=== PATIENT | female | born 1965 | race Caucasian/White ===

== ENCOUNTER → 2016-11-10 | Outpatient (CLI) | payer OTHER ==
[2016-11-10 09:57] LABS: Basophils % (A) 0 %; CH 26.4; CHCM 30.4; Eosinophils # (A) 0.2 k/uL (0-0.7); Eosinophils % (A) 2 %; HGB 13.7 gm/dL (11.4-16.0); Hypochromasia Moderate; Luc # (Auto) 0.18; Luc % (Auto) 3; Lymphocytes # (A) 1.6 k/uL (1.0-4.8); Lymphocytes % (A) 25 %; MCH 26.7 pg (25.0-35.0); MCHC 30.5 g/dL (31.0-37.0); MCV 87.4 fL (80.0-100.0); Mean Platelet Volume 8.9; Monocytes # (A) 0.3 k/uL (0-1.0); Monocytes % (A) 5 %; Neutrophils # (A) 4.2 k/uL (1.3-7.7); Neutrophils % (A) 65 %; RBC 5.15 m/uL (3.80-5.40); RDW 13.9 % (11.5-15.5); WBC 6.5 k/uL (3.8-10.6); WBC (Perox) 6.57
== END | disposition home or self-care (01) ==
LOC: LABPAT 09:05
PROVIDERS: ATTEND Obstetrics & Gynecology
DX: N95.0 Postmenopausal bleeding (principal)
CPT/HCPCS: 85025

== ENCOUNTER 2016-11-11 08:29 | Day surgery (SDC) | payer OTHER ==
[2016-11-07 15:23] VITALS: BMI 60.3
[~2016-11-11 08:29] MED LIST: DEXAMETHASONE SOD PHOSPHATE 10 MG/ML 1 ML VIAL IV ONE; HYDROmorphone 1 MG/ML 1 ML SYRINGE IVP PRN; LACTATED RINGERS 1,000 ML IV SCH; LIDOCAINE 1% 20 ML VIAL (10MG/ML) FOR IV START INTRADERMA PRN; MIDAZOLAM 2 MG/2 ML VIAL IV PRN; ONDANSETRON 4 MG/2 ML VIAL IVP ONE; Pre Op ABX Message 1 EACH MISC MISCELLANE ONE; SCOPOLAMINE 1.5MG/72HR PATCH TRANSDERM ONE
[2016-11-11 09:26] VITALS: RESP 18
[2016-11-11] MEDS ORDERED: fentaNYL (PF) 50 MCG/ML 2 ML AMP ONE (10:15)
[2016-11-11] MEDS ORDERED: SUCCINYLCHOLINE CHLORIDE 100 MG/5 ML SYR IV ONE (10:15)
[2016-11-11] MEDS ORDERED: MIDAZOLAM 2 MG/2 ML VIAL ONE (10:15)
[2016-11-11] MEDS ORDERED: PROPOFOL 10 MG/ML 20 ML VIAL IV ONE (10:15)
[2016-11-11] MEDS ORDERED: Acetaminophen-Codeine 300-30mg TAB PO PRN ×2 (10:23)
[2016-11-11] MEDS ORDERED: KETOROLAC 30 MG/ML 1 ML VIAL IVP PRN (10:23)
[2016-11-11] MEDS ORDERED: SIMETHICONE 80 MG CHEWABLE PO PRN (10:23)
[2016-11-11] MEDS ORDERED: diphenhydrAMINE 50 MG/ML 1 ML VIAL IVP PRN (10:23)
[2016-11-11] MEDS ORDERED: ONDANSETRON 4 MG/2 ML VIAL IVP PRN (10:23)
[2016-11-11] MEDS ORDERED: METOCLOPRAMIDE 5 MG/ML 2 ML VIAL IVP PRN (10:23)
[2016-11-11] MEDS ORDERED: LACTATED RINGERS 1,000 ML IV SCH (10:30)
--- NOTE | 2016-11-11 10:50 | P.OP ---
Date of Procedure: 11/11/16 Preoperative Diagnosis: #1. Postmenopausal bleeding #2. Morbid obesity Postoperative Diagnosis: Same Procedure(s) Performed: #1. Diagnostic hysteroscopy 2. Dilation and curettage Anesthesia: MAUREEN Surgeon: Naresh Valentino Estimated Blood Loss (ml): 5 IV fluids (ml): 600 Urine output (ml): 40 Pathology: other (Endometrial curettings) Condition: stable Disposition: PACU Operative Findings: Preoperative pelvic examination demonstrated a roughly 4-5 week midplane mobile nontender normal uterus though the exam is significantly limited secondary to patient's habitus. Intraoperatively, the uterus sounded to 8 cm. Hysteroscopic Josh there was some shaggy endometrium in the fundal region. The bilateral tubal ostia were seen. Minimal tissue was returned on curettage and nothing was found with the polyp forceps. Description of Procedure: The patient was prepped and draped in usual fashion after general endotracheal anesthesia was administered by the anesthesiologist. A weighted speculum was placed and the bladder drained of approximately 40 mL of clear katie urine. The anterior lip cervix was grasped with a single-tooth tenaculum and the uterus sounded to 8 cm. Serial dilation was carried out to admit the diagnostic hysteroscope with the findings as noted above., Once adequate hysteroscopy had been carried out, the scope was set aside and the cervix further dilated to admit a small sharp curette. Thorough circumferential curettage was carried out onto a Telfa placed in the vagina. Minimal tissue was returned. A polyp forceps was then introduced and no further tissue or polypoid fragments noted. The instrumentation was removed. There was some bleeding at one of the sites of the tenaculum which was made hemostatic with pressure. Estimated blood loss for the entire case was 5 mL or less. There were no complications. All sponge, instrument, and needle counts were correct. The patient tolerated the procedure well and proceeded to the recovery room in stable condition.
[2016-11-11 11:00] VITALS: TEMP 98.2
[2016-11-11 12:06] VITALS: BP 138/87; PULSE 87
== END 2016-11-11 12:33 | disposition home or self-care (01) ==
LOC: OR 08:29
PROVIDERS: ATTEND Obstetrics & Gynecology
DX: N84.0 Polyp of corpus uteri (principal); E66.01 Morbid (severe) obesity due to excess calories; Z68.44 Body mass index [BMI] 60.0-69.9, adult; Z80.49 Family history of malignant neoplasm of other genital organs; I10 Essential (primary) hypertension; F17.200 Nicotine dependence, unspecified, uncomplicated; Z79.82 Long term (current) use of aspirin; Z79.899 Other long term (current) drug therapy; Z88.8 Allergy status to other drugs, medicaments and biological substances
CPT/HCPCS: 58558; 88305; J2250; J1100; J2405; J3010; J0330; J2704

== ENCOUNTER → 2018-10-29 | Outpatient (CLI) | payer BC ==
--- NOTE | 2018-11-01 10:16 | MM ---
Reason for exam: additional evaluation requested from prior study. Last mammogram was performed 3 years and 10 months ago. History: Patient is postmenopausal. 2 cyst aspirations of the left breast. Excisional biopsy of the left breast. Physical Findings: Nurse did not find any significant physical abnormalities on exam. MG 3D Diag Mammo W/Cad JOSEFINA Bilateral CC and MLO view(s) were taken. Prior study comparison: December 28, 2014, right breast MG diagnostic mammo RT w CAD. June 22, 2014, bilateral MG screening mammo w CAD. The breast tissue is heterogeneously dense. This may lower the sensitivity of mammography. There is no discrete abnormality including area of concern. No significant new findings when compared with previous films. These results were verbally communicated with the patient and result sheet given to the patient on 10/29/18. ASSESSMENT: Negative, BI-RAD 1 RECOMMENDATION: Routine screening mammogram of both breasts in 1 year. Manage patient on a clinical basis.
== END | disposition home or self-care (01) ==
LOC: RADMAMWWP 14:44
PROVIDERS: ATTEND Internal Medicine
DX: R92.8 Other abnormal and inconclusive findings on diagnostic imaging of breast (principal)
CPT/HCPCS: 77062; 77066

== ENCOUNTER → 2019-02-11 | Outpatient (CLI) | payer OTHER ==
--- NOTE | 2019-02-11 14:05 | XR ---
EXAMINATION TYPE: XR knee complete LT DATE OF EXAM: 02/11/2019 CLINICAL HISTORY: pain TECHNIQUE: Three views of the left knee are obtained. COMPARISON: None. FINDINGS: There is no acute fracture/dislocation. Severe tricompartmental joint space narrowing note d. Extensive bone spur formation. [id number] joint effusion. The overlying soft tissue appears unremarkable. IMPRESSION: There is no acute fracture or dislocation. Advanced changes of osteoarthritis. ICD 10 NO FRACTURE, INITIAL EVALUATION
--- NOTE | 2019-02-11 14:09 | XR ---
Left leg HISTORY: Leg pain 2 views of the left leg Correlation to left knee same date There is soft tissue swelling present. Bone mineralization is reduced. Arthropathy noted at the left ankle. Bone mineralization, alignment are maintained. IMPRESSION: Osteoarthritis, correlate for cellulitis, edema.
== END | disposition home or self-care (01) ==
LOC: RADXRMAIN 13:32
PROVIDERS: ATTEND Emergency Medicine
DX: M17.12 Unilateral primary osteoarthritis, left knee (principal); S80.12XA Contusion of left lower leg, initial encounter

== ENCOUNTER 2019-02-14 13:58 | Emergency (ER) | payer BC, OTHER ==
[2019-02-14 14:10] VITALS: BP 149/88; PULSE 100; RESP 18; TEMP 98.1
--- NOTE | 2019-02-14 16:01 | ED ---
General Adult HPI - General Chief complaint: Extremity Injury, Lower Stated complaint: Leg injury/pain-[facility] Time Seen by Provider: 02/14/19 14:56 Source: patient Mode of arrival: wheelchair Limitations: no limitations - History of Present Illness Initial comments: Patient is a 53-year-old female presenting to emergency Department with left leg pain. Patient fell on Thursday after she tripped and landed on her left knee. Patient reports she was sent to emergency department and a fracture and dislocation were ruled out with an x-ray. Patient reports swelling in the left knee as well as ecchymosis. Patient reports the pain has decreased and now she has developed erythema in the lower leg. Patient also reports lower leg pain. She was reexamined by [facility] and sent to the emergency department today. Patient denies chest pain, shortness of breath, fever or chills. Patient is a smoker. Patient denies shortness of breath more than usual. Patient denies exogenous estrogen use, history of DVTs, recent chemotherapy treatment or recent prolonged periods of activity. - Related Data Home Medications Medication Instructions Recorded Confirmed Cholecalciferol [Vitamin D3] 1,000 unit PO DAILY 11/07/16 11/07/16 Cider Vinegar [Apple Cider Vinegar] 300 mg PO DAILY 11/07/16 11/11/16 Docusate [Colace] 100 mg PO DAILY 11/07/16 11/11/16 Iron 18 mg PO DAILY 11/07/16 11/11/16 Multivitamin with Iron 1 each PO DAILY 11/07/16 11/07/16 [Multivitamins with Iron] Misoprostol [Cytotec] 200 mcg VAGINAL ONCE 11/11/16 11/11/16 Previous Rx's Medication Instructions Recorded Cephalexin [Keflex] 500 mg PO Q6HR #40 cap 02/14/19 Allergies Allergy/AdvReac Type Severity Reaction Status Date / Time amitriptyline [From [facility]] Allergy Itching Verified 02/14/19 14:04 ibuprofen Allergy Rash/Hives, Verified 11/07/16 15:19 itching mustard Allergy Dyspnea Verified 11/07/16 15:19 peanut Allergy Anaphylaxis Verified 11/07/16 15:19 metamucil powder Allergy Dyspnea Uncoded 11/07/16 15:19 salmon Allergy Dyspnea Uncoded 11/07/16 15:19 Review of Systems ROS Statement: Those systems with pertinent positive or pertinent negative responses have been documented in the HPI. ROS Other: All systems not noted in ROS Statement are negative. Past Medical History Past Medical History: Hypertension, Osteoarthritis (OA) Additional Past Medical History / Comment(s): not currently taking BP medication, herniated disc, sciatic problem,migraine headaches, no periods for 3 yrs. & started bleeding recently History of Any Multi-Drug Resistant Organisms: None Reported Past Surgical History: Breast Surgery, Cholecystectomy, Tubal Ligation Past Anesthesia/Blood Transfusion Reactions: No Reported Reaction Past Psychological History: No Psychological Hx Reported Smoking Status: Current every day smoker Past Alcohol Use History: None Reported Past Drug Use History: None Reported - Past Family History Mother Family Medical History: Cancer General Exam Limitations: no limitations General appearance: alert, in no apparent distress, obese Head exam: Present: atraumatic, normocephalic, normal inspection Eye exam: Present: normal appearance, PERRL, EOMI Pupils: Present: normal accommodation ENT exam: Present: normal exam, mucous membranes moist, normal external ear exam Neck exam: Present: normal inspection, full ROM Respiratory exam: Present: normal lung sounds bilaterally Cardiovascular Exam: Present: regular rate, normal rhythm, normal heart sounds Extremities exam: Present: tenderness (Left knee tenderness of palpation, left lower leg pain with palpation.), other (+2 dorsalis pedis and posterior tibialis bilaterally). Absent: normal inspection (Left knee ecchymosis, mild erythema in the left lower leg, left lower leg pain), full ROM (Limited range of motion due to pain.) Back exam: Present: normal inspection, full ROM Neurological exam: Present: alert, oriented X3 Psychiatric exam: Present: normal affect, normal mood Skin exam: Present: warm, intact, normal color Course Vital Signs 02/14/19 14:04 Temperature 98.1 F Pulse Rate 100 Respiratory 18 Rate Blood Pressure 149/88 O2 Sat by Pulse 99 Oximetry Medical Decision Making - Medical Decision Making Patient is a 53-year-old female presents emergency Department with left knee pain. X-ray of the left knee is unremarkable. Thorough physical examination of the leg appears slightly difficult due to large body habitus. Ultrasound of the left leg is unremarkable for DVT. The ecchymosis of the left knee is due to the healing process considering the incident occurred 3 days ago. Patient advised to follow-up with orthopedics if symptoms not improved. Patient advised to alternate between Tylenol and ibuprofen for pain control. Strict return parameters were thoroughly discussed the patient was understanding and a greeable. Case discussed with physician. i counseled the patient for smoking cessation for greater than 3 minutes - Lab Data Lab Results 02/14/19 Range/Units 15:45 Urine Color Light Yellow Urine Appearance Clear (Clear) Urine pH 6.5 (5.0-8.0) Ur Specific [place] 1.009 (1.001-1.035) Urine Protein Negative (Negative) Urine Glucose (UA) Negative (Negative) Urine Ketones Negative (Negative) Urine Blood Negative (Negative) Urine Nitrite Negative (Negative) Urine Bilirubin Negative (Negative) Urine Urobilinogen <2.0 (<2.0) mg/dL Ur Leukocyte Esterase Negative (Negative) Disposition Clinical Impression: Cellulitis, leg Disposition: HOME SELF-CARE Condition: Stable Instructions (If sedation given, give patient instructions): Knee Sprain (ED) Additional Instructions: Please apply cold compresses on the left knee to minimize swelling. Please see prescribe medication as directed. Please follow up with primary care. Please return to emergency department if symptoms worsen. Prescriptions: Cephalexin [Keflex] 500 mg PO Q6HR #40 cap Is patient prescribed a controlled substance at d/c from ED?: No Referrals: Jose J Peace MD [Primary Care Provider] - 1-2 days Robel Bella DO [Doctor of Osteopathic Medicine] - 1-2 days Time of Disposition: 16:52
[2019-02-14 16:07] LABS: Appearance,Urine Clear (Clear); Bilirubin,Urine Negative (Negative); Blood,Urine Negative (Negative); Color,Urine Light Yellow; Glucose,Urine (UA) Negative (Negative); Ketones,Urine Negative (Negative); Leukocyte Esterase,Urine Negative (Negative); Nitrite,Urine Negative (Negative); PH, Urine 6.5 (5.0-8.0); Protein,Urine Negative (Negative); Specific Gravity,Urine 1.009 (1.001-1.035); Urobilinogen,Urine <2.0 mg/dL (<2.0)
--- NOTE | 2019-02-14 16:31 | US ---
EXAMINATION TYPE: US venous doppler duplex LE LT DATE OF EXAM: 02/14/2019 4:11 PM COMPARISON: NONE CLINICAL HISTORY: 53-year-old female Pain. Injury to left bernabe 3 days prior, no h/o DVT, bruising on bernabe, patient is 390lbs SIDE PERFORMED: left TECHNIQUE: The lower extremity deep venous system is examined utilizing real time linear array sonog lety with graded compression, doppler sonography and color-flow sonography. FINDINGS: VESSELS IMAGED: External Iliac Vein (EIV) Common Femoral Vein Deep Femoral Vein Greater Saphenous Vein * Femoral Vein Popliteal Vein Small Saphenous Vein * Proximal Calf Veins (* superficial vessels) Zone Maintenance Technician notes: Left Leg: Limited exam shows no sign of thrombus seen above the knee, good blood flow and compression seen. Due to patient's body habitus, I could only image transversally due to lar ge popiteal fold. Unable to visualize vessels in popiteal fossa. 4.7cm complex collection seen under bruising on bernabe at area of injury IMPRESSION: 1. Large patient body habitus limits assessment particularly at and below the left knee. No evidence for DVT above the knee. Unable to adequately evaluate the popliteal vein. 2. Focal elongated irregular collection measuring 4.7 x 4.4 x 0.5 cm just deep to the skin surface wi thin the subcutaneous adipose layer at the site of patient's injury. Some subcutaneous bruising is navarro spected. Consider 2-4 week follow-up soft tissue ultrasound to reassess.
== END 2019-02-14 16:58 | disposition home or self-care (01) ==
LOC: EC 13:58
DX: L03.116 Cellulitis of left lower limb (principal); F17.200 Nicotine dependence, unspecified, uncomplicated; Z79.899 Other long term (current) drug therapy; Z91.010 Allergy to peanuts; Z91.018 Allergy to other foods; Z88.6 Allergy status to analgesic agent; Z88.8 Allergy status to other drugs, medicaments and biological substances
CPT/HCPCS: 81003; 99283

== ENCOUNTER → 2019-06-24 | Outpatient (CLI) | payer BC ==
--- NOTE | 2019-06-24 18:05 | US ---
EXAMINATION TYPE: US thyroid st tissue head/neck DATE OF EXAM: 06/24/2019 COMPARISON: NONE CLINICAL HISTORY: R22.1 MASS OF NECK. palpable near left ear for 1 year, stayed the same in size, te nder when touched 0.9 x 0.9 x 0.8cm hypoechoic lesion with no internal vascularity noted within parotid gland. IMPRESSION: There is a 9 mm hypoechoic nodule corresponding to the area of palpable abnormality whic h has an overall nonspecific appearance but appears to be solid. 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 More definitive evaluation is suggested with CT scan soft tissue neck with c ontrast.
== END | disposition home or self-care (01) ==
LOC: RADUSWWP 16:31
PROVIDERS: ATTEND Internal Medicine
DX: R22.1 Localized swelling, mass and lump, neck (principal)
CPT/HCPCS: 76536

== ENCOUNTER → 2019-08-01 | Outpatient (CLI) | payer BC ==
--- NOTE | 2019-08-02 08:12 | CT ---
EXAMINATION TYPE: CT soft tissue neck w con DATE OF EXAM: 08/01/2019 COMPARISON: None HISTORY: swelling to left side of neck CT DLP: 591.2 mGycm CONTRAST: CT scan of the neck is performed with IV Contrast, patient injected with 60cc mL of Isovue 300. Contrast enhanced CT of the neck was performed from the skull base through the lung apices. AIRWAY: The supraglottic, glottic, and subglottic portions of the airway appear patent and free of mass. SALIVARY GLANDS: The submandibular and parotid glands are free of mass or inflammatory process. THYROID GLAND: Predominantly solid nodule is identified arising from the left thyroid lobe measuring 3.5 x 2.1 x 2.2 cm. Right thyroid lobe is free of nodule. LYMPH NODES: 3-5 lymph nodes are noted adjacent to the left submandibular gland and left internal jug ular chain all measuring less than 1 cm. Several subcentimeter right-sided lymph nodes also noted. No lymph nodes greater than 1 cm. LUNG APICES: No nodule or mass is seen. OTHER: Vascular structures are patent. Severe degenerative change throughout the cervical spine with multilevel central stenosis identified. No abscess seen. IMPRESSION: 1. Nonspecific left-sided thyroidal nodule as discussed above. 2. Severe degenerative change throughout the cervical spine with multilevel central stenosis.
== END | disposition home or self-care (01) ==
LOC: RADCTMAIN 16:10
PROVIDERS: ATTEND Internal Medicine
DX: R22.1 Localized swelling, mass and lump, neck (principal)
CPT/HCPCS: 70491; Q9967

== ENCOUNTER → 2020-06-07 | Outpatient (CLI) | payer BC ==
--- NOTE | 2020-06-07 16:52 | US ---
EXAMINATION TYPE: US thyroid st tissue head/neck DATE OF EXAM: 06/07/2020 COMPARISON: No prior thyroid ultrasound scans. CT 08/01/2022. CLINICAL HISTORY: E04.1 NONTOXIC SINGLE THYROID NODULE. Assess nodule GLAND SIZE: Right Lobe: 4.3 x 1.4 x 1.9 cm Overall Parenchyma: heterogenous Left Lobe: 4.2 x 2.4 x 2.4 cm Overall Parenchyma: heterogeneous Isthmus Thickness: 0.4 cm NODULES RIGHT: # of nodules measured on right: 1 1. 0.9 X 0.6 x 0.5 cm solid nodule at the mid pole with well-defined margins. This nodule is wider than tall and shows no intranodular vascularity. Prior size: No prior here LEFT: # of nodules measured on left: 1 1. 3.1 X 2.5 x 2.0 cm hypoechoic solid nodule at the mid pole with well-defined margins. This nodu le is wider than tall and shows intranodular vascularity. Prior size: No prior ultrasound here . This nodule may be larger than the CT measurements of 2.2 c m x 2.1 cm. ISTHMUS: # of nodules measured in the isthmus: 0 Bilateral neck scanned, no evidence of lymphadenopathy. IMPRESSION: Large nodule left lobe thyroid may be larger than the CT comparison
== END | disposition home or self-care (01) ==
LOC: RADUSWWP 15:43
PROVIDERS: ATTEND Internal Medicine
DX: E04.1 Nontoxic single thyroid nodule (principal)
CPT/HCPCS: 76536

== ENCOUNTER 2021-02-25 06:40 | Day surgery (SDC) | payer BC ==
[2021-02-20 16:33] VITALS: BMI 69.5
--- NOTE | 2021-02-25 02:36 | P.GSHP ---
History of Present Illness H&P Date: 02/25/21 CHIEF COMPLAINT: GERD and colon screen HISTORY OF PRESENT ILLNESS: The patient is a 55-year-old female who presents with gastroesophageal reflux disease and need for colon screen. Upper and lower endoscopy were offered for further evaluation and management. PAST MEDICAL HISTORY: Please see list. PAST SURGICAL HISTORY: Please see list. MEDICATIONS: Please see list. ALLERGIES: Please see list. SOCIAL HISTORY: No illicit drug use FAMILY HISTORY: No reports of Crohn disease or ulcerative colitis. REVIEW OF ORGAN SYSTEMS: CONSTITUTIONAL: No reports of fevers or chills. GI: Denies any blood in stools or constipation. PHYSICAL EXAM: VITAL SIGNS: Stable GENERAL: Well-developed pleasant in no acute distress. HEENT: No scleral icterus. Extraocular movements grossly intact. Moist buccal mucosa. NECK: Supple without lymphadenopathy. CHEST: Unlabored respirations. Equal bilateral excursions. CARDIOVASCULAR: Regular rate and rhythm. Distal 2+ pulses. ABDOMEN: Soft, nondistended. MUSCULOSKELETAL: No clubbing, cyanosis, or edema. ASSESSMENT: 1. Gastroesophageal reflux disease 2. Colon screen. PLAN: 1. Recommend proceeding with an upper and lower endoscopy Past Medical History Past Medical History: GERD/Reflux, Hypertension, Osteoarthritis (OA) Additional Past Medical History / Comment(s): herniated disc, migraine headaches, - mass present on thyroid, History of Any Multi-Drug Resistant Organisms: None Reported Past Surgical History: Breast Surgery, Cholecystectomy, Tubal Ligation Additional Past Surgical History / Comment(s): 01/31/2020 - mass removed by carotid on left side of neck. 2019 - US biopsy on thyroid. Past Anesthesia/Blood Transfusion Reactions: No Reported Reaction Smoking Status: Former smoker - Past Family History Mother Family Medical History: Osteoarthritis (OA) Medications and Allergies Home Medications Medication Instructions Recorded Confirmed Type Cider Vinegar [Apple Cider Vinegar] 600 mg PO DAILY 11/07/16 02/20/21 History Metoprolol Succinate (ER) [Toprol 50 mg PO DAILY 08/30/19 02/20/21 History Xl] Sennosides [Senokot] 8.6 mg PO DAILY 08/30/19 02/20/21 History Ascorbic Acid/Elderberry Fruit 1 each PO DAILY 01/16/21 02/20/21 History [Elderberry-Vit C 50-100 mg [facility]] Cholecalciferol [Vitamin D3 (25 50 mcg PO DAILY 01/16/21 02/20/21 History Mcg = 1000 Iu)] Cyanocobalamin (Vitamin B-12) 5,000 mcg PO DAILY 01/16/21 02/20/21 History [Vitamin B-12] Ferrous Sulfate [Iron] 325 mg PO DAILY 01/16/21 02/20/21 History Zinc 50 mg PO DAILY 01/16/21 02/20/21 History amLODIPine BESYLATE [Norvasc] 5 mg PO DAILY 01/16/21 02/20/21 History Chlorthalidone 25 mg PO DAILY 02/20/21 02/20/21 History amLODIPine [Norvasc] 2.5 mg PO HS 02/20/21 02/20/21 History Allergies Allergy/AdvReac Type Severity Reaction Status Date / Time amitriptyline [From [facility]] Allergy Itching Verified 02/20/21 16:07 gabapentin Allergy Unknown Verified 02/20/21 16:07 ibuprofen Allergy Rash/Hives, Verified 02/20/21 16:07 itching mustard Allergy Dyspnea Verified 02/20/21 16:07 peanut Allergy Anaphylaxis Verified 02/20/21 16:07 cat nip Allergy Dyspnea Uncoded 02/20/21 16:07 metamucil powder Allergy Dyspnea Uncoded 02/20/21 16:07 salmon Allergy Dyspnea Uncoded 02/20/21 16:07
[~2021-02-25 06:40] MED LIST changes: -DEXAMETHASONE SOD PHOSPHATE 10 MG/ML 1 ML VIAL IV ONE; -HYDROmorphone 1 MG/ML 1 ML SYRINGE IVP PRN; +LIDOCAINE 1% (10MG/ML) FOR IV START INTRADERMA PRN; -LIDOCAINE 1% 20 ML VIAL (10MG/ML) FOR IV START INTRADERMA PRN; -MIDAZOLAM 2 MG/2 ML VIAL IV PRN; -ONDANSETRON 4 MG/2 ML VIAL IVP ONE; -Pre Op ABX Message 1 EACH MISC MISCELLANE ONE; -SCOPOLAMINE 1.5MG/72HR PATCH TRANSDERM ONE
[2021-02-25 07:28] VITALS: TEMP 97.8
[2021-02-25] MEDS ORDERED: PROPOFOL 10 MG/ML 20 ML VIAL IV ONE (07:34)
[2021-02-25] MEDS ORDERED: LIDOCAINE 1% INJ 10MG/ML (20 ML MDV) ONE (07:34)
[2021-02-25] MEDS ORDERED: GLYCOPYRROLATE 0.2 MG/ML 2 ML VIAL ONE (07:34)
[2021-02-25] MEDS ORDERED: KETAMINE 10 MG/ML 20 ML VIAL ONE (07:34)
--- NOTE | 2021-02-25 07:50 | P.PCN ---
Date of Procedure: 02/25/21 Description of Procedure: PREOPERATIVE DIAGNOSIS: Gastroesophageal reflux disease. Morbid obesity. POSTOPERATIVE DIAGNOSIS: Morbid obesity. Gastritis. Gastroesophageal reflux disease. Diaphragmatic hiatal hernia OPERATION: Esophagogastroduodenoscopy with biopsies along antrum. SURGEON: Lashaun Cristina MD ANESTHESIA: MAC. INDICATIONS: The patient is a 55-year-old female who presents with a history of reflux disease. Benefits and risks of the procedure were described. Informed consent was obtained. DESCRIPTION: The patient was brought into the endoscopy suite and laid in the left lateral decubitus position. An Olympus gastroscope was passed along the posterior oropharynx down to the distal esophagus where the squamocolumnar junction was encountered at 40 cm from the incisors. The stomach was entered. Additional findings are listed below. Biopsies with cold forceps were obtained of the antrum. The first through third portion of the duodenum was examined and unremarkable. Retroflexion of the scope confirmed Hill grade 3 lower esophageal valve. The squamocolumnar junction demonstrated LA grade B erosive esophagitis. The stomach was desufflated. The patient tolerated the procedure well. FINDINGS: Squamocolumnar junction 40 cm from the incisors. Diaphragmatic hiatus at 41 cm. Hiatal hernia, 1 cm Hill grade 3 lower esophageal valve. LA grade B erosive esophagitis. No active duodenitis. Chronic gastritis Bile reflux RECOMMENDATIONS: Upper endoscopy as needed.
--- NOTE | 2021-02-25 08:14 | P.PCN ---
Date of Procedure: 02/25/21 Description of Procedure: PREOPERATIVE DIAGNOSIS: Colonoscopy screening. Family history colon polyps POSTOPERATIVE DIAGNOSIS: Colonoscopy screening. Family history colon polyps OPERATION: Colonoscopy to the cecum, ileocecal valve and appendiceal orifice. SURGEON: Lashaun Cristina MD. ANESTHESIA: MAC. INDICATIONS: The patient is a 55-year-old female who presents for colonoscopy screening. Benefits and risks were described and informed consent was obtained. DESCRIPTION OF PROCEDURE: The patient had undergone Sutab prep. The patient had been brought into the operating room and laid in the left lateral decubitus position. After adequate intravenous sedation, the rectum was examined with 2% lidocaine jelly. No external hemorrhoids were encountered. The rectal tone was within normal limits. No lesions were palpated in the rectal vault. An Olympus colonoscope was advanced until the cecum, ileocecal valve and appendiceal orifice were clearly viewed. The prep was good. No scattered diverticulosis was encountered. No colonic polyps were found. No evidence of focal colitis was found. Retroflexion of the scope demonstrated grade 1 internal hemorrhoids without active bleeding or inflammation. The colon was desufflated. The patient had tolerated the procedure well. Withdrawal time was over 6 minutes. FINDINGS: Aronchick preparation quality scale 2 (1-5) Internal hemorrhoids, grade 1 No external prolapsed hemorrhoids. No arteriovenous malformations. No adenomatous polyps. No focal colitis. RECOMMENDATIONS: Lower endoscopy in 5 years, 2025 Plan - Discharge Summary Discharge Rx Participant: No New Discharge Prescriptions: Continue Cider Vinegar [Apple Cider Vinegar] 600 mg PO DAILY Metoprolol Succinate (ER) [Toprol XL] 50 mg PO DAILY Sennosides [Senokot] 8.6 mg PO DAILY Zinc 50 mg PO DAILY Ascorbic Acid/Elderberry Fruit [Elderberry-Vit C 50-100 mg Chw] 1 each PO DAILY Chlorthalidone 25 mg PO DAILY Cyanocobalamin (Vitamin B-12) [Vitamin B-12] 5,000 mcg PO DAILY Cholecalciferol [Vitamin D3 (25 Mcg = 1000 Iu)] 50 mcg PO DAILY amLODIPine BESYLATE [Norvasc] 5 mg PO DAILY Ferrous Sulfate [Iron] 325 mg PO DAILY amLODIPine [Norvasc] 2.5 mg PO HS Discharge Medication List Cider Vinegar [Apple Cider Vinegar] 600 mg PO DAILY 11/07/16 [History] Metoprolol Succinate (ER) [Toprol XL] 50 mg PO DAILY 08/30/19 [History] Sennosides [Senokot] 8.6 mg PO DAILY 08/30/19 [History] Ascorbic Acid/Elderberry Fruit [Elderberry-Vit C 50-100 mg Chw] 1 each PO DAILY 01/16/21 [History] Cholecalciferol [Vitamin D3 (25 Mcg = 1000 Iu)] 50 mcg PO DAILY 01/16/21 [History] Cyanocobalamin (Vitamin B-12) [Vitamin B-12] 5,000 mcg PO DAILY 01/16/21 [History] Ferrous Sulfate [Iron] 325 mg PO DAILY 01/16/21 [History] Zinc 50 mg PO DAILY 01/16/21 [History] amLODIPine BESYLATE [Norvasc] 5 mg PO DAILY 01/16/21 [History] Chlorthalidone 25 mg PO DAILY 02/20/21 [History] amLODIPine [Norvasc] 2.5 mg PO HS 02/20/21 [History] [facility]Ref[facility] [place] [facility] [place] [facility] Patient Instructions/Handouts: *Sur[facility] - (Anesthesia) Endoscopy Discharge Instructions, Colonoscopy (DC), Upper Endoscopy (DC) Activity/Diet/Wound Care/Special Instructions: Repeat colonoscopy 5 years, 2025 Discharge Disposition: HOME SELF-CARE
[2021-02-25 08:21] VITALS: BP 120/86; PULSE 89; RESP 18
[2021-02-25 08:58] LABS: HCT 39.7 % (34.0-46.0); MCH 28.7 pg (25.0-35.0); MCHC 32.9 g/dL (31.0-37.0); MCV 87.4 fL (80.0-100.0); Mean Platelet Volume 9.3; Platelet Count 159 k/uL (150-450); RBC 4.54 m/uL (3.80-5.40); RDW 13.8 % (11.5-15.5); WBC 5.5 k/uL (3.8-10.6)
[2021-02-25 09:08] LABS: ALT 53 U/L (4-34); AST 45 U/L (14-36); African American GFR (CKD) >90 (>60 ml/min/1.73 sqM); Albumin 3.6 g/dL (3.5-5.0); Alkaline Phosphatase 62 U/L (38-126); Anion Gap 9 mmol/L; Blood Urea Nitrogen 12 mg/dL (7-17); Calcium 8.7 mg/dL (8.4-10.2); Carbon Dioxide 26 mmol/L (22-30); Chloride 103 mmol/L (98-107); Glucose 111 mg/dL (74-99); Magnesium 1.9 mg/dL (1.6-2.3); Non-African American GFR(CKD) >90 (>60 ml/min/1.73 sqM); Phosphorus 3.9 mg/dL (2.5-4.5); Potassium 3.4 mmol/L (3.5-5.1); Sodium 138 mmol/L (137-145); Total Bilirubin 0.7 mg/dL (0.2-1.3); Total Protein 6.4 g/dL (6.3-8.2)
[2021-02-25 09:19] LABS: Prothrombin Time 10.7 sec (9.0-12.0)
[2021-02-25 16:19] LABS: % Iron Saturation 20.53 (12.00-45.00); Chol/HDL Ratio 3.43; Cholesterol 127 mg/dL (0-200); Iron 62 ug/dL (50-170); LDL Cholesterol,Calculated 60.4 mg/dL (0.0-131.0); Total Iron Binding Capacity 302 ug/dL (228-460)
[2021-02-25 16:34] LABS: Ferritin 352.4 ng/mL (10.0-291.0); Folate, Serum >24.0 ng/mL
[2021-02-25 18:02] LABS: Hemoglobin A1C 5.4 % (4.0-6.0)
[2021-02-26 13:01] LABS: Zinc, Serum 67 ug/dL (60-130)
[2021-02-27 06:03] LABS: Vitamin A 33 ug/dL (38-106)
[2021-02-27 06:24] LABS: Vit B1(Thiamine) 46 ug/L (38-122)
== END 2021-02-25 08:51 | disposition home or self-care (01) ==
LOC: ORWHC2ENDO 06:40
PROVIDERS: ATTEND Surgery Plastic and Reconstructive Surgery
DX: Z12.11 Encounter for screening for malignant neoplasm of colon (principal); K29.50 Unspecified chronic gastritis without bleeding; Z83.71 Family history of colonic polyps; K44.9 Diaphragmatic hernia without obstruction or gangrene; K22.10 Ulcer of esophagus without bleeding; E66.01 Morbid (severe) obesity due to excess calories; Z68.44 Body mass index [BMI] 60.0-69.9, adult; I10 Essential (primary) hypertension; M19.90 Unspecified osteoarthritis, unspecified site; G43.909 Migraine, unspecified, not intractable, without status migrainosus; E07.9 Disorder of thyroid, unspecified; Z98.890 Other specified postprocedural states; Z90.49 Acquired absence of other specified parts of digestive tract; Z98.51 Tubal ligation status; Z87.891 Personal history of nicotine dependence; Z82.61 Family history of arthritis; Z79.899 Other long term (current) drug therapy; Z88.6 Allergy status to analgesic agent; Z91.010 Allergy to peanuts; Z88.8 Allergy status to other drugs, medicaments and biological substances; Z91.018 Allergy to other foods; G47.33 Obstructive sleep apnea (adult) (pediatric)
CPT/HCPCS: 43239; 84255; 84134; 88305; 84425; 80061; 80053; 82607; 82728; 82525; 82746; 83540; 83550; 83735; 84100; 84443; 84590; 84630; 85027; 85610; 85730; 82306; 83970; 83036; G0105; J2001; J2704; 45378

== ENCOUNTER → 2021-03-06 | Outpatient (CLI) | payer BC ==
[2021-03-06 14:35] VITALS: BP 177/102; PULSE 90; RESP 18; TEMP 98.4; BMI 70.0
--- NOTE | 2021-03-06 14:43 | P.PN ---
Subjective Progress Note Date: 03/06/21 She comes in with BMI over 70. She is an EGD follow-up. No current abdominal pain. EKG done. Food diary journal described. Needs recent EKG at facility. Cardiac clearance with Dr. Koehler. Objective - Vital Signs Vital signs: Vital Signs Temp 98.4 F 03/06/21 14:27 Pulse 90 03/06/21 14:27 Resp 18 03/06/21 14:27 BP 177/102 03/06/21 14:27 Pulse Ox Intake & Output 03/05/21 03/06/21 03/06/21 18:59 06:59 18:59 Weight 190.962 kg
== END | disposition home or self-care (01) ==
LOC: BARWHC3 13:38
PROVIDERS: ATTEND Surgery Plastic and Reconstructive Surgery
DX: E66.01 Morbid (severe) obesity due to excess calories (principal); Z68.45 Body mass index [BMI] 70 or greater, adult
CPT/HCPCS: 99211

== ENCOUNTER → 2021-05-20 | Outpatient (CLI) | payer BC ==
[2021-05-20 14:32] VITALS: BMI 66.0
== END ==
LOC: BARWHC3 08:17
PROVIDERS: ATTEND Surgery Plastic and Reconstructive Surgery
DX: E66.01 Morbid (severe) obesity due to excess calories (principal); Z68.44 Body mass index [BMI] 60.0-69.9, adult; Z71.3 Dietary counseling and surveillance
CPT/HCPCS: 97804

== ENCOUNTER → 2021-08-08 | Outpatient (CLI) | payer BC | END | disposition home or self-care (01) | LOC: LABPAT 09:14 | PROVIDERS: ATTEND Surgery Plastic and Reconstructive Surgery | DX: Z01.812 Encounter for preprocedural laboratory examination (principal); Z20.822 Contact with and (suspected) exposure to COVID-19 | CPT/HCPCS: U0003; C9803; U0005 ==

== ENCOUNTER 2021-08-12 07:30 | Inpatient (IN) | payer BC ==
[2021-08-19] MEDS ORDERED: ceFAZolin 3 GM in SODIUM CHLORIDE 0.9% 100 ML IVPB PRN (05:00)
[2021-08-19] MEDS ORDERED: SCOPOLAMINE 1.5MG/72HR PATCH TRANSDERM PRN (05:33)
[2021-08-19] MEDS ORDERED: HYDROmorphone 0.5 MG/0.5 ML SYRINGE IVP PRN (05:33)
[2021-08-19] MEDS ORDERED: ACETAMINOPHEN TAB 500 MG TAB PO PRN (05:33)
[2021-08-19] MEDS ORDERED: DEXAMETHASONE SOD PHOSPHATE 4 MG/ML 1 ML VIAL IV ONE (05:33)
[2021-08-19] MEDS ORDERED: ONDANSETRON 4 MG/2 ML VIAL IVP ONE (05:33)
[2021-08-19] MEDS ORDERED: PANTOPRAZOLE 40 MG/10 ML VIAL IVP PRN (07:00)
[2021-08-19] MEDS ORDERED: CHLORHEXIDINE GLUCONATE 15 ML CUP MUCOUS MEM PRN (07:00)
[2021-08-19] MEDS ORDERED: ENOXAPARIN 40 MG/0.4 ML SYRINGE SQ PRN (07:00)
--- NOTE | 2021-08-19 07:31 | P.GSHP ---
History of Present Illness H&P Date: 08/18/21 CHIEF COMPLAINT: Morbid obesity HISTORY OF PRESENT ILLNESS: Lachelle Valdivia is a 55-year-old female who comes with lifelong morbid obesity. She is looking into the sleeve gastrectomy. As a result of her morbid obesity, she has developed hypertensive heart disease, osteoarthritis. She now comes in with BMI over 70. At height of 5 feet 5 inches, her ideal body weight is 149 pounds. She was 420 pounds, BMI 70.1. She comes in 387 pounds in 5 months. She has lost 33 pounds in 5 months. Body mass index 64.6. She is 238 pounds overweight. PAST MEDICAL HISTORY: 1. Morbid obesity due to excess calories 2. Body mass index of 70.1 3. Hypertensive heart disease. 4. Obstructive sleep apnea 5. Left knee osteoarthritis 6. Osteoarthritis of the right knee 7. Gastroesophageal reflux disease 8. Iron deficiency anemia 9. Degenerative joint disease 10. Sciatica 11. Migraines 12. Thyroid disorder 13. Anxiety PAST SURGICAL HISTORY: 1. Tubal ligation 2. Cholecystectomy 3. Breast surgery 4. Carotid mass surgery HOME MEDICATIONS: Home Medications Medication Instructions Recorded Confirmed Cider Vinegar [Apple Cider Vinegar] 600 mg PO DAILY 11/07/16 03/06/21 Metoprolol Succinate (ER) [Toprol 50 mg PO DAILY 08/30/19 03/06/21 XL] Sennosides [Senokot] 8.6 mg PO DAILY 08/30/19 03/06/21 Ascorbic Acid/Elderberry Fruit 1 each PO DAILY 01/16/21 03/06/21 [Elderberry-Vit C 50-100 mg [facility]] Cholecalciferol [Vitamin D3 (25 50 mcg PO DAILY 01/16/21 03/06/21 Mcg = 1000 Iu)] Cyanocobalamin (Vitamin B-12) 5,000 mcg PO DAILY 01/16/21 03/06/21 [Vitamin B-12] Ferrous Sulfate [Iron] 325 mg PO DAILY 01/16/21 03/06/21 Zinc 50 mg PO DAILY 01/16/21 03/06/21 amLODIPine BESYLATE [Norvasc] 5 mg PO DAILY 01/16/21 03/06/21 amLODIPine [Norvasc] 2.5 mg PO HS 02/20/21 03/06/21 ALLERGIES: Allergies Allergy/AdvReac Type Severity Reaction Status Date / Time amitriptyline [From Elavil] Allergy Itching Verified 03/06/21 14:29 gabapentin Allergy Unknown Verified 03/06/21 14:29 ibuprofen Allergy Rash/Hives, Verified 03/06/21 14:29 itching mustard Allergy Dyspnea Verified 03/06/21 14:29 peanut Allergy Anaphylaxis Verified 03/06/21 14:29 cat nip Allergy Dyspnea Uncoded 03/06/21 14:29 metamucil powder Allergy Dyspnea Uncoded 03/06/21 14:29 salmon Allergy Dyspnea Uncoded 03/06/21 14:29 SOCIAL HISTORY: Past tobacco use. FAMILY HISTORY: No family history of ulcerative colitis disease or Crohn's disease. Family history of morbid obesity. No lupus in the family. No reports of stomach or esophageal cancer. She has family history of colon polyps. Her mother had blood clots. She reports obesity in her great grandmother, grandmother, mother and sister. REVIEW OF ORGAN SYSTEMS: CONSTITUTIONAL: At height of 5 feet 5 inches, her ideal body weight is 149 pounds. She comes in 412 pounds at her highest weight. Her body mass index is 68.7. She is 263 pounds overweight. HEENT: Denies any active troubles with vision or hearing. ENDOCRINE: Denies diabetes. Has thyroid nodule. CARDIOVASCULAR: Denies past reports of palpitations or heart attacks or chest pain. Has hypertensive heart disease. RESPIRATORY: Has daytime somnolence. Has asthma. Has chronic obstructive pulmonary disease. GASTROINTESTINAL: Denies any bright red blood per rectum. No diarrhea. No constipation. Has gastroesophageal reflux disease. GENITOURINARY: Has bladder urgency. No recent blood in urine MUSCULOSKELETAL: Has lower back pain and joint pain. NEURO: Has headaches. No seizure disorders. Generalized anxiety disorder. PSYCH: Denies depression. No suicidal ideation. RHEUMATOLOGIC: No lupus. No rheumatoid arthritis. HEMATOLOGIC: Denies any abnormal bleeding or bruising. SKIN: No rash. No skin cancer. PHYSICAL EXAM: VITAL SIGNS: Height 5 foot 5 inches, weight 412 pounds. BMI 68.7 GENERAL: Well-developed in no acute distress. HEENT: No scleral icterus. Extraocular movements grossly intact. Hears conversational speech. No nasal drainage. NECK: Supple without lymphadenopathy. CHEST: Nonlabored respirations with equal bilateral excursions. CARDIOVASCULAR: Regular rate and regular rhythm. Distal 2+ pulses. ABDOMEN: Obese, soft, nontender, nondistended. MUSCULOSKELETAL: No clubbing, cyanosis. NEURO: No focal or lateralizing signs. Cranial nerves 2 through 12 grossly within normal limits. PSYCH: Appropriate affect. Alert and oriented to person, place and time. SKIN: Good skin turgor. Well perfused. ASSESSMENT: 1. Morbid obesity due to excess calories 2. Body mass index of 70.1 3. Hypertensive heart disease. 4. Obstructive sleep apnea 5. Left knee osteoarthritis 6. Osteoarthritis of the right knee 7. Gastroesophageal reflux disease 8. Iron deficiency anemia 9. Degenerative joint disease 10. Sciatica 11. Migraines 12. Thyroid disorder 13. Anxiety 14. Elevated liver function test 15. Vitamin D deficiency 16. Vitamin A deficiency 17. Tobacco abuse disorder PLAN: 1. Bariatric options between a sleeve, band and a Geovany-en-Y gastric bypass were reviewed in detail. The patient elected for a sleeve gastrectomy. Robotic assisted approach described. 2. The [place] [facility] Data was also reviewed with benefits and risks as described. 3. An 8 page second-generation bariatric consent form was reviewed in detail including potential of bleeding, infection, leaks, adequate weight loss, nutritional deficiencies which the patient demonstrated understanding of the risks. 4. A 2 week high-protein low caloric 800 kcal diet described to address hepatomegaly. 5. Preoperative labs including complete metabolic panel and CBC with type and screen recommended. 6. DVT prophylaxis per [place] [facility]. 7. Antibiotic prophylaxis. 8. Inpatient hospitalization anticipated for more than 2 nights. 9. All questions and concerns were addressed with the patient. 10. She is elevated risk with tobacco abuse disorder, uncontrolled hypertension for any surgical intervention. 11. Patient should benefit from surgical intervention for correction of her morbid obesity. Past Medical History Past Medical History: GERD/Reflux, Hearing Disorder / Deafness, Hypertension, Musculoskeletal Disorder, Osteoarthritis (OA), Thyroid Disorder Additional Past Medical History / Comment(s): Hx irreg HR, palpitations. Tinnitus. Herniated disc lower back, occ sciatic nerve pain, hxmigraine headaches, mass present on thyroid, varicose veins, hx edema BLE. History of Any Multi-Drug Resistant Organisms: None Reported Past Surgical History: Breast Surgery, Cholecystectomy, Tubal Ligation Additional Past Surgical History / Comment(s): 1lump bilat breast exc, 1 mass exc Lt breast. 01/31/2020 - mass/cyst removed by carotid on left side of neck. Multi US biopsies on thyroid. Colonoscopy, EGD. Past Anesthesia/Blood Transfusion Reactions: No Reported Reaction Smoking Status: Former smoker - Past Family History Mother Family Medical History: Deep Vein Thrombosis (DVT), Osteoarthritis (OA) Medications and Allergies Home Medications Medication Instructions Recorded Confirmed Type Cider Vinegar [Apple Cider Vinegar] 600 mg PO DAILY 11/07/16 08/08/21 History Metoprolol Succinate (ER) [Toprol 50 mg PO DAILY 08/30/19 08/08/21 History XL] Sennosides [Senokot] 8.6 mg PO DAILY 08/30/19 08/08/21 History Ascorbic Acid/Elderberry Fruit 1 each PO HS 01/16/21 08/08/21 History [Elderberry-Vit C 50-100 mg Chw] Cholecalciferol [Vitamin D3 (25 50 mcg PO DAILY 01/16/21 08/08/21 History Mcg = 1000 Iu)] Cyanocobalamin (Vitamin B-12) 5,000 mcg PO DAILY 01/16/21 08/08/21 History [Vitamin B-12] Ferrous Sulfate [Iron] 325 mg PO DAILY 01/16/21 08/08/21 History Zinc 50 mg PO DAILY 01/16/21 08/08/21 History amLODIPine BESYLATE [Norvasc] 5 mg PO DAILY 01/16/21 08/08/21 History amLODIPine [Norvasc] 2.5 mg PO HS 02/20/21 08/08/21 History Acetaminophen/Diphenhydramine 2 tab PO HS 08/08/21 08/08/21 History [Tylenol PM 500-25mg] Hydrochlorothiazide 12.5 mg PO DAILY 08/08/21 08/08/21 History [hydroCHLOROthiazide] diphenhydrAMINE [Benadryl] 25 mg PO HS PRN 08/08/21 08/08/21 History Allergies Allergy/AdvReac Type Severity Reaction Status Date / Time amitriptyline [From Elavil] Allergy Itching Verified 08/08/21 09:59 gabapentin Allergy Unknown Verified 08/08/21 09:59 ibuprofen Allergy Rash/Hives, Verified 08/08/21 09:59 itching mustard Allergy Dyspnea Verified 08/08/21 09:59 peanut Allergy Anaphylaxis Verified 08/08/21 09:59 cat nip Allergy Dyspnea Uncoded 08/08/21 09:59 metamucil powder Allergy Dyspnea Uncoded 08/08/21 09:59 salmon Allergy Dyspnea Uncoded 08/08/21 09:59
[2021-08-19] MEDS: LACTATED RINGERS 1,000 ML IV SCH (12:30)
[2021-08-19] MEDS ORDERED: LIDOCAINE 1% (10MG/ML) FOR IV START INTRADERMA ONE (12:30)
[2021-08-19] MEDS ORDERED: BUPIVACAIN-EPI 0.25%-1:200,000 30 ML VIAL SQ ONE ×2 (13:22→14:06)
[2021-08-19] MEDS ORDERED: NEOSTIGMINE 1 MG/ML 10 ML VIAL ONE (13:30)
[2021-08-19] MEDS ORDERED: SUCCINYLCHOLINE CHLORIDE VIAL 200 MG/10 ML VIAL IV ONE (13:30)
[2021-08-19] MEDS ORDERED: PROPOFOL 10 MG/ML 20 ML VIAL IV ONE (13:30)
[2021-08-19] MEDS ORDERED: MIDAZOLAM 2 MG/2 ML VIAL ONE (13:30)
[2021-08-19] MEDS ORDERED: GLYCOPYRROLATE 0.2 MG/ML 2 ML VIAL ONE (13:30)
[2021-08-19] MEDS ORDERED: ROCURONIUM 10 MG/ML (5 ML VIAL) IV ONE (13:30)
[2021-08-19] MEDS ORDERED: fentaNYL (PF) 50 MCG/ML 2 ML AMP ONE (13:30)
[2021-08-19] MEDS ORDERED: HYDROmorphone (PF) 1 MG/ML ONE (13:30)
[2021-08-19] MEDS ORDERED: LIDOCAINE 1% INJ 10MG/ML (20 ML MDV) ONE (13:30)
[2021-08-19] MEDS ORDERED: LACTATED RINGERS 1,000 ML IV ONE (14:34)
[2021-08-19] MEDS ORDERED: diphenhydrAMINE 25 MG CAP PO PRN (15:38)
[2021-08-19] MEDS ORDERED: NALOXONE 0.4 MG/ML 1 ML VIAL IV PRN (15:43)
[2021-08-19] MEDS ORDERED: HYDROmorphone 1 MG/ML 1 ML SYRINGE IVP PRN (15:43)
[2021-08-19] MEDS ORDERED: diphenhydrAMINE 50 MG/ML 1 ML VIAL IVP PRN (15:44)
--- NOTE | 2021-08-19 15:53 | P.OP ---
Date of Procedure: 08/19/21 Description of Procedure: SURGEON: SIDDHARTHA SANCHEZ MD PREOPERATIVE DIAGNOSES: 1. Morbid obesity due to excess calories 2. Body mass index of 70.1 3. Hypertensive heart disease. 4. Obstructive sleep apnea 5. Left knee osteoarthritis 6. Osteoarthritis of the right knee 7. Gastroesophageal reflux disease 8. Iron deficiency anemia 9. Degenerative joint disease 10. Sciatica 11. Migraines 12. Thyroid disorder 13. Anxiety 14. Elevated liver function test 15. Vitamin D deficiency 16. Vitamin A deficiency 17. Tobacco abuse disorder POSTOPERATIVE DIAGNOSES: 1. Morbid obesity due to excess calories 2. Body mass index of 70.1 3. Hypertensive heart disease. 4. Obstructive sleep apnea 5. Left knee osteoarthritis 6. Osteoarthritis of the right knee 7. Gastroesophageal reflux disease 8. Iron deficiency anemia 9. Degenerative joint disease 10. Sciatica 11. Migraines 12. Thyroid disorder 13. Anxiety 14. Elevated liver function test 15. Vitamin D deficiency 16. Vitamin A deficiency 17. Tobacco abuse disorder 18. Fatty liver disease OPERATION: 1. Robotic assisted daVinci Xi laparoscopic sleeve gastrectomy with 40-Finnish bougie, multiport 2. Intraoperative esophagogastroduodenoscopy. ANESTHESIA: Gen. local anesthetic ESTIMATED BLOOD LOSS: 5 mL SPECIMENS REMOVED: Sleeve gastrectomy COMPLICATIONS: None. FINDINGS: 1. Negative intraoperative esophagogastrojejunoscopy leak test. 2. No large hiatus hernia. 3. Total of 7 staplers used including 1 - 60 mm black stapls 3 - 60 mm green and 3 60 mm blue robot loads used to create the gastric sleeve. 4. Sleeve gastrectomy, 32 x 6 cm INDICATIONS: Lachelle Valdivia is a 55-year-old female who comes with lifelong morbid obesity. She is looking into the sleeve gastrectomy. As a result of her morbid obesity, she has developed hypertensive heart disease, osteoarthritis. She now comes in with BMI over 70. At height of 5 feet 5 inches, her ideal body weight is 149 pounds. She was 420 pounds, BMI 70.1. She comes in 375 pounds from 387 pounds. All surgical options for morbid obesity had been described using the [place] [facility] comorbidity resolution including complication risk score. A second-generation bariatric consent form was described in detail including the possibility of protein malnutrition, leaks, gastric stricture, venous thrombosis, gastroesophageal reflux disease, need for further surgery for which she demonstrated understanding. Benefits and risks of the procedure were described at length. Informed consent was obtained. DESCRIPTION: The patient was brought into the operating room theater. Preoperatively she had received Lovenox subcutaneously for DVT prophylaxis. Additionally she had Peridex oral solution as an oral decontaminant. After general induction, the abdomen was prepped and draped in standard sterile fashion. An Ioban draping was placed along the abdomen. A robotic da Veronika Xi system was prepped and primed. At 15 cm from the xiphoid, proposed port sites were marked with indelible marker along the anterior axillary line bilaterally, mid axillary line bilaterally with each ports were marked 10 to 15 cm from each other. The robotic stapler port was marked for the right midclavicular line. A 5 mm 0 degrees laparoscopic trocar entry was performed along the left upper quadrant. The abdomen was insufflated to 15 mmHg pressure was tolerated well. Diagnostic laparoscopy demonstrated no injury to bowel, viscera, or mesentery. No evidence of large hiatus hernia was identified. The liver had fatty liver disease. A 8 mm port was placed along the left upper abdominal wall after exchanging the 5 mm port. A separate 8 mm port was placed along the left lateral abdominal wall. Please note that the ports were placed at least 20 cm away from the target anatomy. Care was taken to check each robotic arms were safely away from collision with the bed or the patient. At the epigastrium, a medium sized Sagrario liver retractor was placed under direct visualization with the Iron Control Clerk Subassembly placed under the right shoulder of the patient. Next, 12-mm robot stapler port was placed along the right upper quadrant. The camera 8-mm port was maintained along the epigastrium. The patient was repositioned in reverse Trendelenburg position at 21-degrees after lowering the bed. The robot was docked along the left side of the patient. Using a grasper for arm 4, a vessel sealer for arm 3, including grasper for arm 1, the robotic system was docked and primed as described. Instruments were interchanged by the staffing assistant for stapler loads. The camera was placed at 30- degrees down. I had sat at the console. The pylorus was identified and 6 cm proximally along the greater curvature of the stomach, the short gastrics were mobilized upwards to the angle of His using a vessel sealer. Hemostasis was excellent d uring this portion of the procedure. Next, the upper pole of the stomach was adherent to the left gideon, which was gently dissected free using atraumatic grasper. I went to the head of the bed and placed 40-Finnish blunt bougie into the stomach. Robotic stapler black load 60 mm 1, green load 60 mm 3 followed by blue 60 mm x 3 loads were used to create the sleeve. Initial firing was across the antrum of the stomach towards the angle of His. The staple line was linear without corkscrewing. The space from the angularis incisura of the sleeve was approximately 4 cm. I then went to the head of the bed to perform the intraoperative esophagogastroduodenoscopy leak test. The upper pole of the stomach was bathed using normal saline solution. The scope was withdrawn with careful inspection along the staple line for which no leaks were found along the entire length. Additionally,the sleeve was completely hemostatic without any encroachment along the angularis incisura. Its topology was a soft "J". No stricture was encountered upon placement of the scope. The GI tract was desufflated. The patient tolerated this portion of the procedure well. The scope was completely withdrawn. The robot was undocked. I then rescrubbed into case, whereby the irrigation fluid was aspirated from the abdominal cavity. Tisseel fibrin sealant was placed along the entire staple length. Once dried the Sagrario liver retractor was removed. Attention was now brought to removal of the specimen. The distal end of the sleeve gastrectomy specimen was brought out through the 12 mm port at the left upper quadrant. The specimen was gently removed en total. No contamination had occurred during this process. All instruments and pneumoperitoneum including irrigation fluid was removed from the abdominal cavity. The 12 mm port site was closed using 0-Vicryl and Stef Roman and irrigated with diluted hydrogen peroxide. The final incisions were closed using subcuticular interrupted suture of 4-0 Monocryl. Exofin was applied to the skin once the skin had been cleansed. OptiFoam dressing was placed along the stomach extraction site. The sleeve specimen was measured and checked also for leaks which none were found. At the end of the procedure, needle, sponge, and instrument count was verified correct by the technical maintenance technician. [facility] condition. She had tolerated the procedure well. Intraoperative films and findings were reviewed with the patient's family.
[2021-08-19] MEDS: ACETAMINOPHEN IV (For NPO) 1,000 MG in EMPTY BAG 1 BAG IVPB SCH (18:05)
[2021-08-19] MEDS: DEXAMETHASONE SOD PHOSPHATE 4 MG/ML 1 ML VIAL IVP SCH (18:06)
[2021-08-19] MEDS: 0.9% NACL WITH KCL 20 MEQ/L 1,000 ML IV SCH (18:06)
[2021-08-19] MEDS: METOCLOPRAMIDE 5 MG/ML 2 ML VIAL IVP SCH (18:06)
[2021-08-19] MEDS: ONDANSETRON 4 MG/2 ML VIAL IVP SCH (18:07)
[2021-08-19] MEDS: SIMETHICONE 40 MG/0.6 ML DROPS 2,000 MG/30 ML BOTTLE PO SCH (18:45)
[2021-08-19] MEDS: HYOSCYAMINE ORAL DROPS 1.875 MG/15 ML BOTTLE PO SCH (18:45)
[2021-08-19] MEDS: ALBUTEROL NEBULIZED 2.5 MG/3 ML INHALATION SCH (20:36)
[2021-08-19] MEDS ORDERED: amLODIPine 2.5 MG TAB PO SCH (21:00)
[2021-08-19] MEDS: ceFAZolin 3 GM in SODIUM CHLORIDE 0.9% 100 ML IVPB SCH (22:33)
[2021-08-19] MEDS: PANTOPRAZOLE 40 MG/10 ML VIAL IV SCH (22:34)
[2021-08-20] MEDS: ONDANSETRON 4 MG/2 ML VIAL IVP SCH ×3 (00:33→11:58)
[2021-08-20] MEDS: METOCLOPRAMIDE 5 MG/ML 2 ML VIAL IVP SCH ×3 (00:33→11:58)
[2021-08-20] MEDS: DEXAMETHASONE SOD PHOSPHATE 4 MG/ML 1 ML VIAL IVP SCH ×3 (00:34→11:58)
[2021-08-20] MEDS: ACETAMINOPHEN IV (For NPO) 1,000 MG in EMPTY BAG 1 BAG IVPB SCH ×3 (00:36→11:53)
[2021-08-20] MEDS: HYOSCYAMINE ORAL DROPS 1.875 MG/15 ML BOTTLE PO SCH ×3 (00:37→11:59)
[2021-08-20] MEDS: SIMETHICONE 40 MG/0.6 ML DROPS 2,000 MG/30 ML BOTTLE PO SCH ×3 (00:43→11:59)
[2021-08-20] MEDS: ceFAZolin 3 GM in SODIUM CHLORIDE 0.9% 100 ML IVPB SCH (06:29)
[2021-08-20] MEDS: LACTATED RINGERS 1,000 ML IV SCH (06:51)
[2021-08-20] MEDS: 0.9% NACL WITH KCL 20 MEQ/L 1,000 ML IV SCH ×2 (07:34)
[2021-08-20 07:44] VITALS: BP 151/73; TEMP 98.6
[2021-08-20] MEDS ORDERED: 1: THIAMINE 100 MG, FOLIC ACID 1 MG in 0.9% NACL WITH KCL 20 MEQ/L 1,000 ML 2: 0.9% NAC IVPB SCH (08:00)
[2021-08-20] MEDS: ALBUTEROL NEBULIZED 2.5 MG/3 ML INHALATION SCH ×3 (08:53→17:00)
[2021-08-20] MEDS ORDERED: METOPROLOL SUCCINATE (ER) 50 MG TAB.ER.24H PO SCH (09:00)
[2021-08-20] MEDS ORDERED: amLODIPine 5 MG TAB PO SCH (09:00)
[2021-08-20] MEDS ORDERED: hydroCHLOROthiazide 12.5 MG CAP PO SCH (09:00)
[2021-08-20] MEDS ORDERED: SENNOSIDES 8.6 MG TAB PO SCH (09:00)
[2021-08-20] MEDS ORDERED: ENOXAPARIN 40 MG/0.4 ML SYRINGE SQ SCH (09:00)
[2021-08-20 09:08] LABS: Basophils # (A) 0.01 X 10*3/uL (0.00-0.10); Basophils % (A) 0.2 %; Eosinophils # (A) 0 X 10*3/uL (0.04-0.35); Eosinophils % (A) 0 %; HCT 42.3 % (37.2-46.3); HGB 12.7 g/dL (12.0-15.0); Lymphocytes # (A) 0.53 X 10*3/uL (0.90-5.00); Lymphocytes % (A) 10.7 %; MCH 26.6 pg (27.0-32.0); MCV 88.7 fL (80.0-97.0); Mean Platelet Volume 12.7 fL (9.5-12.2); Monocytes # (A) 0.15 X 10*3/uL (0.20-1.00); Neutrophils # (A) 4.23 X 10*3/uL (1.80-7.70); Neutrophils % (A) 85.7 %; Platelet Count 158 X 10*3/uL (140-440); RBC 4.77 X 10*6/uL (4.10-5.20); RDW 13.8 % (11.5-14.5); WBC 4.94 X 10*3/uL (4.50-10.00)
[2021-08-20 10:04] LABS: African American GFR (CKD) 112.1 (60.0-200.0); Anion Gap 15.4 mmol/L (10.00-18.00); Blood Urea Nitrogen 6.4 mg/dL (9.0-27.0); Calcium 8.6 mg/dL (8.7-10.3); Non-African American GFR(CKD) 96.7 (60.0-200.0); Phosphorus 3.3 mg/dL (2.4-5.1); Potassium 4.3 mmol/L (3.5-5.5)
[2021-08-20 10:08] LABS: Magnesium 1.9 mg/dL (1.5-2.4)
[2021-08-20] MEDS ORDERED: SODIUM CHLORIDE 0.9% 2,000 ML IV ONE (10:29)
--- NOTE | 2021-08-20 10:35 | FL ---
EXAMINATION TYPE: FL UGI DATE OF EXAM: 08/20/2021 LIMITED UGI: CLINICAL HISTORY: Morbid Obesity, gastric sleeve surgery yesterday. TECHNIQUE: Limited UGI-esophagram is performed utilizing 2 oz of Isovue-370. A total of 81 seconds o f fluoroscopic time was utilized during procedure and 75 images obtained. COMPARISON: None. FINDINGS: Exam is suboptimal due to large body habitus. The patient swallowed contrast without diffic ulty or delay. Esophageal peristalsis and motility are within normal limits. There is good flow of contrast along the diaphragmatic hiatus into proximal stomach and subsequent flow into gastric sleeve through the proximal anastomosis. There is satisfactory flow from distal sleeve and anastomosis into pylorus and duodenal sweep. Patient remains asymptomatic. There is no convincing evidence of contras t extravasation to suggest leak. IMPRESSION: No evidence of obvious leak or significant obstruction status post recent gastric sleeve surgery.
[2021-08-20] MEDS: PANTOPRAZOLE 40 MG/10 ML VIAL IV SCH (10:57)
[2021-08-20 12:44] VITALS: BMI 62.6
--- NOTE | 2021-08-20 15:48 | P.DS ---
Providers Date of admission: 08/19/21 10:37 Expected date of discharge: 08/20/21 Attending physician: Lashaun Cristina Primary care physician: Bronwyn Estrada MD Hospital Course: Discharge diagnosis 1. Morbid obesity due to excess calories 2. Body mass index of 54.9, initial 3. Sarcoidosis 4. Diabetes mellitus type 2 5. Asthma 6. Sleep apnea 7. Hypertensive heart disease 8. Hypothyroidism 9. Congestive heart failure 10. Hepatomegaly Hospital course Radha Morgan is a 60-year-old female who comes with lifelong morbid obesity. She is looking into weight loss options. She needs bilateral knee replacements. Her BMI is over 50. She has osteoarthritis of the knees including hypertensive heart disease and sleep apnea and congestive heart related due to her morbid obesity. Patient is status post Robotic assisted daVinci Xi laparoscopic sleeve gastrectomy. Patient tolerated surgery well. Her upper GI shows no evidence of leak or obstruction. She is tolerating diet. She is up and ambulating. Her pain is controlled. She is afebrile. She is stable for discharge. Physician Dolphin Trainer note has been reviewed by physician. Signing provider agrees with the documented findings, assessment, and plan of care. Patient Condition at Discharge: Stable Plan - Discharge Summary Discharge Rx Participant: No New Discharge Prescriptions: New Omeprazole [PriLOSEC] 40 mg PO DAILY #30 cap bisacodyL [Dulcolax] 5 mg PO DAILY PRN #10 tab PRN Reason: Constipation Simethicone 40 mg/0.6 ml Drops [Mylicon Drops] 40 mg PO PCHS PRN #30 ml PRN Reason: Gas Ondansetron Odt [Zofran Odt] 4 mg PO Q8HR PRN #9 tab PRN Reason: Nausea Acetaminophen [Tylenol Extra Strength] 1,000 mg PO Q6H PRN #12 tablet PRN Reason: Pain Continue Metoprolol Succinate (ER) [Toprol XL] 50 mg PO DAILY Sennosides [Senokot] 8.6 mg PO DAILY diphenhydrAMINE [Benadryl] 25 mg PO HS PRN PRN Reason: allergy sx amLODIPine BESYLATE [Norvasc] 5 mg PO DAILY amLODIPine [Norvasc] 2.5 mg PO HS Discontinued Cider Vinegar [Apple Cider Vinegar] 600 mg PO DAILY Zinc 50 mg PO DAILY Ascorbic Acid/Elderberry Fruit [Elderberry-Vit C 50-100 mg Chw] 1 each PO HS Hydrochlorothiazide [hydroCHLOROthiazide] 12.5 mg PO DAILY Cyanocobalamin (Vitamin B-12) [Vitamin B-12] 5,000 mcg PO DAILY Cholecalciferol [Vitamin D3 (25 Mcg = 1000 Iu)] 50 mcg PO DAILY Ferrous Sulfate [Iron] 325 mg PO DAILY Acetaminophen/Diphenhydramine [Tylenol PM 500-25mg] 2 tab PO HS Discharge Medication List Metoprolol Succinate (ER) [Toprol XL] 50 mg PO DAILY 08/30/19 [History] Sennosides [Senokot] 8.6 mg PO DAILY 08/30/19 [History] amLODIPine BESYLATE [Norvasc] 5 mg PO DAILY 01/16/21 [History] amLODIPine [Norvasc] 2.5 mg PO HS 02/20/21 [History] diphenhydrAMINE [Benadryl] 25 mg PO HS PRN 08/08/21 [History] Acetaminophen [Tylenol Extra Strength] 1,000 mg PO Q6H PRN #12 tablet 08/20/21 [Rx] Omeprazole [PriLOSEC] 40 mg PO DAILY #30 cap 08/20/21 [Rx] Ondansetron Odt [Zofran Odt] 4 mg PO Q8HR PRN #9 tab 08/20/21 [Rx] Simethicone 40 mg/0.6 ml Drops [Mylicon Drops] 40 mg PO PCHS PRN #30 ml 08/20/21 [Rx] bisacodyL [Dulcolax] 5 mg PO DAILY PRN #10 tab 08/20/21 [Rx] Follow up [facility]ment(s[facility]Ref[facility] [place] [facility] - 08/23/21 9:00 am Patient Instructions/Handouts: *Surgery [facility] - Scopalamine Patch Instructions Activity/Diet/Wound Care/Special Instructions: Wear abdominal binder at all times for comfort. No lifting over 4 pounds in 4 weeks until Sep 16. May shower. No bath tub soaks for two weeks until Sep 02 Use ice along incisions for the today to prevent swelling. No straws or carbonated beverages Open cuts and/or crush all pills to the size smaller than a TicTac Hold all vitamins until seen by surgeon Discharge Disposition: HOME SELF-CARE
--- NOTE | 2021-08-20 16:05 | P.DS ---
Providers Date of admission: 08/19/21 10:37 Expected date of discharge: 08/20/21 Attending physician: Lashaun Cristina Primary care physician: Bronwyn Estrada MD Hospital Course: Discharge diagnosis 1. Morbid obesity due to excess calories 2. Body mass index of 70.1 3. Hypertensive heart disease. 4. Obstructive sleep apnea 5. Left knee osteoarthritis 6. Osteoarthritis of the right knee 7. Gastroesophageal reflux disease 8. Iron deficiency anemia 9. Degenerative joint disease 10. Sciatica 11. Migraines 12. Thyroid disorder 13. Anxiety 14. Elevated liver function test 15. Vitamin D deficiency 16. Vitamin A deficiency 17. Tobacco abuse disorder 18. Fatty liver disease Hospital course Lachelle Valdivia is a 55-year-old female who comes with lifelong morbid obesity. As a result of her morbid obesity, she has developed hypertensive heart disease, osteoarthritis. She now comes in with BMI over 70. Patient is status post Robotic assisted daVinci Xi laparoscopic sleeve gastrectomy. Patient tolerated surgery well. Her pain is controlled. Her upper GI showed no evidence of leak or obstruction. She is tolerating bariatric clear liquid diet. Patient has been up and ambulating. She is afebrile. She is stable for discharge. Physician Chemical Reclamation Equipment Operator note has been reviewed by physician. Signing provider agrees with the documented findings, assessment, and plan of care. Patient Condition at Discharge: Stable Plan - Discharge Summary Discharge Rx Participant: No New Discharge Prescriptions: New Omeprazole [PriLOSEC] 40 mg PO DAILY #30 cap bisacodyL [Dulcolax] 5 mg PO DAILY PRN #10 tab PRN Reason: Constipation Simethicone 40 mg/0.6 ml Drops [Mylicon Drops] 40 mg PO PCHS PRN #30 ml PRN Reason: Gas Ondansetron Odt [Zofran Odt] 4 mg PO Q8HR PRN #9 tab PRN Reason: Nausea Acetaminophen [Tylenol Extra Strength] 1,000 mg PO Q6H PRN #12 tablet PRN Reason: Pain Continue Metoprolol Succinate (ER) [Toprol XL] 50 mg PO DAILY Sennosides [Senokot] 8.6 mg PO DAILY diphenhydrAMINE [Benadryl] 25 mg PO HS PRN PRN Reason: allergy sx amLODIPine BESYLATE [Norvasc] 5 mg PO DAILY amLODIPine [Norvasc] 2.5 mg PO HS Discontinued Cider Vinegar [Apple Cider Vinegar] 600 mg PO DAILY Zinc 50 mg PO DAILY Ascorbic Acid/Elderberry Fruit [Elderberry-Vit C 50-100 mg Chw] 1 each PO HS Hydrochlorothiazide [hydroCHLOROthiazide] 12.5 mg PO DAILY Cyanocobalamin (Vitamin B-12) [Vitamin B-12] 5,000 mcg PO DAILY Cholecalciferol [Vitamin D3 (25 Mcg = 1000 Iu)] 50 mcg PO DAILY Ferrous Sulfate [Iron] 325 mg PO DAILY Acetaminophen/Diphenhydramine [Tylenol PM 500-25mg] 2 tab PO HS Discharge Medication List Metoprolol Succinate (ER) [Toprol XL] 50 mg PO DAILY 08/30/19 [History] Sennosides [Senokot] 8.6 mg PO DAILY 08/30/19 [History] amLODIPine BESYLATE [Norvasc] 5 mg PO DAILY 01/16/21 [History] amLODIPine [Norvasc] 2.5 mg PO HS 02/20/21 [History] diphenhydrAMINE [Benadryl] 25 mg PO HS PRN 08/08/21 [History] Acetaminophen [Tylenol Extra Strength] 1,000 mg PO Q6H PRN #12 tablet 08/20/21 [Rx] Omeprazole [PriLOSEC] 40 mg PO DAILY #30 cap 08/20/21 [Rx] Ondansetron Odt [Zofran Odt] 4 mg PO Q8HR PRN #9 tab 08/20/21 [Rx] Simethicone 40 mg/0.6 ml Drops [Mylicon Drops] 40 mg PO PCHS PRN #30 ml 08/20/21 [Rx] bisacodyL [Dulcolax] 5 mg PO DAILY PRN #10 tab 08/20/21 [Rx] Follow up [facility]ment(s[facility]Ref[facility] [place] [place] [facility] [place] [facility]23/21 9:00 am Patient Instructions/Handouts: *Surgery [facility] - Scopalamine Patch Instructions Activity/Diet/Wound Care/Special Instructions: Wear abdominal binder at all times for comfort. No lifting over 4 pounds in 4 weeks until Sep 16. May shower. No bath tub soaks for two weeks until Feb 14 Use ice along incisions for the today to prevent swelling. No straws or carbonated beverages Open cuts and/or crush all pills to the size smaller than a TicTac Hold all vitamins until seen by surgeon Discharge Disposition: HOME SELF-CARE
[2021-08-20 17:02] VITALS: RESP 20
[2021-08-20 17:09] VITALS: PULSE 90
[2021-08-21] MEDS ORDERED: bisacodyL 5 MG TABLET.DR PO PRN (08:00)
== END 2021-08-20 17:33 | disposition home or self-care (01) | DRG 621 ==
LOC: 2ORMAIN 08-19 10:37 → 4SSUR 08-19 17:50
PROVIDERS: ADMIT Surgery Plastic and Reconstructive Surgery; ATTEND Surgery Plastic and Reconstructive Surgery
PROC: 8E0W4CZ Robotic Assisted Procedure of Trunk Region, Percutaneous Endoscopic Approach (ICD-10-PCS; 2021-08-19)
PROC: 0DJ08ZZ Inspection of Upper Intestinal Tract, Via Natural or Artificial Opening Endoscopic (ICD-10-PCS; 2021-08-19)
PROC: 0DB64Z3 Excision of Stomach, Percutaneous Endoscopic Approach, Vertical (ICD-10-PCS; principal; 2021-08-19 12:50)
DX: E66.01 Morbid (severe) obesity due to excess calories (principal); D50.9 Iron deficiency anemia, unspecified; E07.9 Disorder of thyroid, unspecified; E50.9 Vitamin A deficiency, unspecified; I11.9 Hypertensive heart disease without heart failure; E55.9 Vitamin D deficiency, unspecified; F41.9 Anxiety disorder, unspecified; G43.909 Migraine, unspecified, not intractable, without status migrainosus; G47.33 Obstructive sleep apnea (adult) (pediatric); R74.01 Elevation of levels of liver transaminase levels; H91.90 Unspecified hearing loss, unspecified ear; K21.9 Gastro-esophageal reflux disease without esophagitis; F17.210 Nicotine dependence, cigarettes, uncomplicated; K76.0 Fatty (change of) liver, not elsewhere classified; M17.0 Bilateral primary osteoarthritis of knee; M54.30 Sciatica, unspecified side; Z68.45 Body mass index [BMI] 70 or greater, adult; Z79.899 Other long term (current) drug therapy; Z83.71 Family history of colonic polyps; Z90.49 Acquired absence of other specified parts of digestive tract; Z98.51 Tubal ligation status; Z88.8 Allergy status to other drugs, medicaments and biological substances; Z88.6 Allergy status to analgesic agent; Z91.010 Allergy to peanuts; Z91.013 Allergy to seafood
CPT/HCPCS: 36415; 74240; 80051; 82310; 82565; 83735; 84100; 84520; 85025; 86850; 86900; 86901; 88307; 94640

== ENCOUNTER → 2021-08-15 | Outpatient (CLI) | payer BC ==
[2021-08-15 19:43] LABS: Basophils # (A) 0.03 X 10*3/uL (0.00-0.10); Basophils % (A) 0.5 %; Eosinophils # (A) 0.17 X 10*3/uL (0.04-0.35); Eosinophils % (A) 2.9 %; HCT 44.7 % (37.2-46.3); HGB 13.6 g/dL (12.0-15.0); Lymphocytes # (A) 1.34 X 10*3/uL (0.90-5.00); Lymphocytes % (A) 22.8 %; MCH 26.9 pg (27.0-32.0); MCHC 30.4 g/dL (32.0-37.0); MCV 88.3 fL (80.0-97.0); Mean Platelet Volume 12.6 fL (9.5-12.2); Monocytes # (A) 0.49 X 10*3/uL (0.20-1.00); Monocytes % (A) 8.3 %; Neutrophils # (A) 3.82 X 10*3/uL (1.80-7.70); Neutrophils % (A) 65.2 %; Platelet Count 195 X 10*3/uL (140-440); RBC 5.06 X 10*6/uL (4.10-5.20); RDW 13.9 % (11.5-14.5); WBC 5.87 X 10*3/uL (4.50-10.00)
[2021-08-15 22:34] LABS: African American GFR (CKD) 92.7 (60.0-200.0); Albumin 4.3 g/dL (3.8-4.9); Albumin/Globulin Ratio 1.44 (1.60-3.17); Anion Gap 7.1 mmol/L (10.00-18.00); Blood Urea Nitrogen 9.8 mg/dL (9.0-27.0); Calcium 8.9 mg/dL (8.7-10.3); Carbon Dioxide 26.7 mmol/L (20.0-27.5); Potassium 4.1 mmol/L (3.5-5.5); Total Bilirubin 0.5 mg/dL (0.30-1.20); Total Protein 7.2 g/dL (6.2-8.2)
== END | disposition home or self-care (01) ==
LOC: LABPAT 12:22
PROVIDERS: ATTEND Surgery Plastic and Reconstructive Surgery
DX: Z20.822 Contact with and (suspected) exposure to COVID-19 (principal)
CPT/HCPCS: 80053; 85025; U0003; C9803; U0005

== ENCOUNTER → 2021-08-23 | Outpatient (CLI) | payer BC ==
[~2021-08-23] MED LIST changes: -LACTATED RINGERS 1,000 ML IV SCH; -LIDOCAINE 1% (10MG/ML) FOR IV START INTRADERMA PRN; +SODIUM CHLORIDE 0.9% 1,000 ML IV ONE
--- NOTE | 2021-08-23 10:09 | P.BASOAP ---
Subjective Progress Note Date: 08/23/21 DATE OF SERVICE: 08/23/2021 CHIEF COMPLAINT: Status post sleeve gastrectomy HISTORY OF PRESENT ILLNESS: Lachelle Valdivia is a 55-year-old female status post sleeve gastrectomy, 08/19/2021. She reports dehydration. Her urine is dark. Her oral intake is low. Pain is controlled. No nausea or vomiting. At height of 5 feet 5 inches, her ideal body weight is 149 pounds. Highest weight 420 pounds, BMI 70.0. She comes in 376 pounds from 390 pounds, 1 months ago. She has lost 14 pounds in 1 months. Her body mass index is 62.7. Lifetime weight loss of 44 pounds. Percent excess weight loss lifetime of 16%. She is 227 pounds overweight. PHYSICAL EXAM: VITAL SIGNS: Height 5 foot 5 inches, weight 376 pounds. BMI 62.7 Vital Signs Temp 96.6 F L 08/23/21 10:10 Pulse 64 08/23/21 10:10 Resp 18 08/23/21 10:10 BP 167/73 08/23/21 10:10 Pulse Ox 98 08/23/21 10:10 GENERAL: Well-developed in no acute distress. HEENT: No scleral icterus. Extraocular movements grossly intact. Hears conversational speech. No nasal drainage. NECK: Supple without lymphadenopathy. CHEST: Nonlabored respirations with equal bilateral excursions. CARDIOVASCULAR: Regular rate and regular rhythm. Distal 2+ pulses. ABDOMEN: Obese, soft. Incisions intact. Dressings discontinued. MUSCULOSKELETAL: No clubbing, cyanosis. NEURO: No focal or lateralizing signs. Cranial nerves 2 through 12 grossly within normal limits. PSYCH: Appropriate affect. Alert and oriented to person, place and time. SKIN: Good skin turgor. Well perfused. ASSESSMENT: 1. Morbid obesity due to excess calories 2. Body mass index of 70.0 to 62.7 3. Hypertensive heart disease 4. Obstructive sleep apnea 5. Left knee osteoarthritis 6. Osteoarthritis of the right knee 7. Gastroesophageal reflux disease 8. Iron deficiency anemia 9. Degenerative joint disease 10. Sciatica 11. Migraines 12. Thyroid disorder 13. Anxiety 14. Elevated liver function test 15. Vitamin D deficiency 16. Vitamin A deficiency 17. Tobacco abuse disorder 18. Status post sleeve gastrectomy PLAN: 1. She reports dehydration. Recommend IV fluid hydration. 2. Blood pressure medications reviewed including blood pressures at home. 3. Follow-up in one week. Assessment/Plan Plan: Date: Initial Weight: Initial BMI: Current Weight: Current BMI: Type of Surgery: Total Volume in Band: Previous Volume: Volume Removed: Volume Added: Band Size:
[2021-08-23 10:11] VITALS: BMI 62.7
[2021-08-23 10:13] VITALS: BP 167/73; PULSE 64; RESP 18; TEMP 96.6
== END | disposition home or self-care (01) ==
LOC: BARWHC3 08:46
PROVIDERS: ATTEND Surgery Plastic and Reconstructive Surgery
DX: E66.01 Morbid (severe) obesity due to excess calories (principal); I11.9 Hypertensive heart disease without heart failure; G47.33 Obstructive sleep apnea (adult) (pediatric); M17.12 Unilateral primary osteoarthritis, left knee; M17.11 Unilateral primary osteoarthritis, right knee; K21.9 Gastro-esophageal reflux disease without esophagitis; D50.9 Iron deficiency anemia, unspecified; M19.90 Unspecified osteoarthritis, unspecified site; M54.30 Sciatica, unspecified side; G43.901 Migraine, unspecified, not intractable, with status migrainosus; E07.9 Disorder of thyroid, unspecified; F41.9 Anxiety disorder, unspecified; R79.89 Other specified abnormal findings of blood chemistry; E55.9 Vitamin D deficiency, unspecified; E50.9 Vitamin A deficiency, unspecified; Z72.0 Tobacco use; Z98.84 Bariatric surgery status; Z68.45 Body mass index [BMI] 70 or greater, adult
CPT/HCPCS: 96360; 99213

== ENCOUNTER → 2021-08-28 | Outpatient (CLI) | payer BC ==
[2021-08-28 14:58] VITALS: BP 156/80; PULSE 80; RESP 16; TEMP 98.4; BMI 59.9
--- NOTE | 2021-08-28 15:18 | P.BASOAP ---
Subjective Progress Note Date: 08/28/21 She has lost 17 pounds in 5 days. She is transitioning her diet. No infection. Protein options described. She cannot tolerate sweets. Objective - Vital Signs Vital signs: Vital Signs Temp 98.4 F 08/28/21 14:54 Pulse 80 08/28/21 14:54 Resp 16 08/28/21 14:54 BP 156/80 08/28/21 14:54 Pulse Ox Intake & Output 08/27/21 08/28/21 08/28/21 18:59 06:59 18:59 Weight 163.293 kg Assessment/Plan Plan: Date: 08/28/21 Initial Weight: 190.962 kg Initial BMI: 70.0 Current Weight: 163.293 kg Current BMI: 59.9 Type of Surgery: Vertical Sleeve Gastrectomy Total Volume in Band: Previous Volume: Volume Removed: Volume Added: Band Size:
== END | disposition home or self-care (01) ==
LOC: BARWHC3 13:47
PROVIDERS: ATTEND Surgery Plastic and Reconstructive Surgery
DX: E66.01 Morbid (severe) obesity due to excess calories (principal); Z68.43 Body mass index [BMI] 50.0-59.9, adult
CPT/HCPCS: 97803; 99211

== ENCOUNTER → 2021-09-16 | Outpatient (CLI) | payer BC ==
[~2021-09-16] MED LIST changes: -SODIUM CHLORIDE 0.9% 1,000 ML IV ONE; +SODIUM CHLORIDE 0.9% 500 ML 500 ML in EMPTY BAG 1 BAG IV PRN
[2021-09-16 11:50] LABS: HCT 46.5 % (34.0-46.0); HGB 14.4 gm/dL (11.4-16.0); Hypochromasia Slight; MCH 27.5 pg (25.0-35.0); MCHC 31.1 g/dL (31.0-37.0); MCV 88.6 fL (80.0-100.0); Mean Platelet Volume 10.4; Platelet Count 171 k/uL (150-450); RBC 5.25 m/uL (3.80-5.40); RDW 14.9 % (11.5-15.5); WBC 5.5 k/uL (3.8-10.6)
[2021-09-16] MEDS: SODIUM CHLORIDE 0.9% 1,000 ML IV SCH ×2 (12:00→13:10)
[2021-09-16 12:01] LABS: ALT 68 U/L (4-34); AST 47 U/L (14-36); African American GFR (CKD) >90 (>60 ml/min/1.73 sqM); Albumin 4.2 g/dL (3.5-5.0); Alkaline Phosphatase 67 U/L (38-126); Anion Gap 11 mmol/L; Blood Urea Nitrogen 8 mg/dL (7-17); Carbon Dioxide 23 mmol/L (22-30); Chloride 106 mmol/L (98-107); Glucose 108 mg/dL (74-99); Magnesium 1.8 mg/dL (1.6-2.3); Non-African American GFR(CKD) 90 (>60 ml/min/1.73 sqM); Phosphorus 4.1 mg/dL (2.5-4.5); Potassium 3.7 mmol/L (3.5-5.1); Sodium 140 mmol/L (137-145); Total Bilirubin 1.2 mg/dL (0.2-1.3); Total Protein 7.4 g/dL (6.3-8.2)
[2021-09-16 12:09] VITALS: BP 134/80; PULSE 70; RESP 16; TEMP 97.6
[2021-09-16 12:12] LABS: INR 1.2 (<1.2); Partial Thromboplastin Time 27.1 sec (22.0-30.0); Prothrombin Time 12.2 sec (9.0-12.0)
[2021-09-16 20:01] LABS: Appearance,Urine Clear (Clear); Bilirubin,Urine Negative (Negative); Blood,Urine Negative (Negative); Color,Urine Dark Yellow (Yellow); Ketones,Urine >=160 mg/dL (Negative); Leukocyte Esterase,Urine Negative (Negative); Nitrite,Urine Negative (Negative); Protein,Urine Trace (Negative); Specific Gravity,Urine 1.019 (1.001-1.030)
[2021-09-16 20:07] LABS: % Iron Saturation 22.03 (12.00-45.00); Chol/HDL Ratio 2.89 Ratio; Iron 59 ug/dL (50-170); LDL Cholesterol,Calculated 58.2 mg/dL (0.0-131.0); Prealbumin 13.7 mg/dL (18.0-42.0); Total Iron Binding Capacity 267 ug/dL (228-460)
[2021-09-17 12:55] LABS: Zinc, Serum 116 ug/dL (60-130)
[2021-09-18 06:33] LABS: Vitamin A 28 ug/dL (38-106)
[2021-09-19 00:26] LABS: Selenium 127 mcg/L (63-160)
[2021-09-20 09:24] LABS: Vit B1(Thiamine) 38 ug/L (38-122)
== END | disposition home or self-care (01) ==
LOC: PROCWHC3 09:59
PROVIDERS: ATTEND Surgery Plastic and Reconstructive Surgery
DX: E86.0 Dehydration (principal); E66.01 Morbid (severe) obesity due to excess calories; E89.1 Postprocedural hypoinsulinemia; D50.8 Other iron deficiency anemias; D50.9 Iron deficiency anemia, unspecified; K91.2 Postsurgical malabsorption, not elsewhere classified; E44.0 Moderate protein-calorie malnutrition; E44.1 Mild protein-calorie malnutrition; E45 Retarded development following protein-calorie malnutrition; E46 Unspecified protein-calorie malnutrition; K74.1 Hepatic sclerosis; N19 Unspecified kidney failure; K50.90 Crohn's disease, unspecified, without complications
CPT/HCPCS: 80053; 80061; 81003; 82306; 82525; 82607; 82728; 82746; 83036; 83540; 83550; 83735; 83970; 84100; 84134; 84255; 84425; 84443; 84590; 84630; 85027; 85610; 85730; 87086; 96360; 96361

== ENCOUNTER → 2021-12-12 | Emergency (ER) | payer BC ==
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
== END ==
LOC: EC 15:28
DX: S16.1XXA Strain of muscle, fascia and tendon at neck level, initial encounter (principal); S50.02XA Contusion of left elbow, initial encounter; S20.212A Contusion of left front wall of thorax, initial encounter; S40.012A Contusion of left shoulder, initial encounter; S80.02XA Contusion of left knee, initial encounter; V89.2XXA Person injured in unspecified motor-vehicle accident, traffic, initial encounter
CPT/HCPCS: 71046; 72050; 99284

== ENCOUNTER 2022-01-06 11:16 | Emergency (ER) | payer OTHER, BC ==
[2022-01-06 12:16] VITALS: BP 130/86; PULSE 62; RESP 18; TEMP 97.6
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
== END 2022-01-06 14:42 | disposition home or self-care (01) ==
LOC: EC 11:16
DX: M25.562 Pain in left knee (principal); M25.512 Pain in left shoulder; I10 Essential (primary) hypertension; K21.9 Gastro-esophageal reflux disease without esophagitis; M19.90 Unspecified osteoarthritis, unspecified site; Z87.891 Personal history of nicotine dependence; Z79.899 Other long term (current) drug therapy; V89.2XXA Person injured in unspecified motor-vehicle accident, traffic, initial encounter; Y92.410 Unspecified street and highway as the place of occurrence of the external cause
CPT/HCPCS: 73030; 73562; 99284; L1830

== ENCOUNTER → 2022-01-08 | Outpatient (CLI) | payer BC ==
[2022-01-08 09:39] LABS: Partial Thromboplastin Time 27.4 sec (22.0-30.0); Prothrombin Time 10.6 sec (9.0-12.0)
[2022-01-08 14:27] LABS: HCT 44.5 % (37.2-46.3); HGB 13.6 g/dL (12.0-15.0); MCHC 30.6 g/dL (32.0-37.0); MCV 88.3 fL (80.0-97.0); NRBC Per 100 WBC 0 /100 WBCS (0.0-0.0); Platelet Count 175 X 10*3/uL (140-440); RBC 5.04 X 10*6/uL (4.10-5.20); RDW 13.9 % (11.5-14.5); WBC 5.63 X 10*3/uL (4.50-10.00)
[2022-01-08 14:49] LABS: % Iron Saturation 30.87 (12.00-45.00); ALT 32 U/L (8-44); AST 21 U/L (13-35); African American GFR (CKD) 94.9 (60.0-200.0); Albumin 4.2 g/dL (3.8-4.9); Albumin/Globulin Ratio 1.45 (1.60-3.17); Alkaline Phosphatase 71 U/L (41-126); BUN/Creat Ratio 24.75 Ratio (12.00-20.00); Blood Urea Nitrogen 19.8 mg/dL (9.0-27.0); Calcium 9.3 mg/dL (8.7-10.3); Carbon Dioxide 21.8 mmol/L (20.0-27.5); Chloride 107 mmol/L (96-109); Globulin 2.9 g/dL (1.6-3.3); Glucose 97 mg/dL (70-110); Iron 91 ug/dL (50-170); Non-African American GFR(CKD) 81.8 (60.0-200.0); Phosphorus 4.3 mg/dL (2.4-5.1); Potassium 4.5 mmol/L (3.5-5.5); Sodium 141 mmol/L (135-145); Total Iron Binding Capacity 295 ug/dL (228-460); Total Protein 7.1 g/dL (6.2-8.2)
[2022-01-08 15:09] LABS: Chol/HDL Ratio 2.41 Ratio; LDL Cholesterol,Calculated 60.5 mg/dL (0.0-131.0); Prealbumin 17.6 mg/dL (18.0-42.0); VLDL Calculation 18.42 mg/dL (5.00-40.00)
[2022-01-09 14:33] LABS: Zinc, Serum 69 ug/dL (60-130)
== END | disposition home or self-care (01) ==
LOC: LABWHC1 08:35
PROVIDERS: ATTEND Surgery Plastic and Reconstructive Surgery
DX: E66.01 Morbid (severe) obesity due to excess calories (principal); D50.8 Other iron deficiency anemias; D50.9 Iron deficiency anemia, unspecified; K91.2 Postsurgical malabsorption, not elsewhere classified; E44.1 Mild protein-calorie malnutrition; E45 Retarded development following protein-calorie malnutrition; E55.9 Vitamin D deficiency, unspecified; K74.1 Hepatic sclerosis; N19 Unspecified kidney failure; T56.894A Toxic effect of other metals, undetermined, initial encounter; K50.90 Crohn's disease, unspecified, without complications
CPT/HCPCS: 36415; 80053; 80061; 82306; 82525; 82607; 82728; 82746; 83036; 83540; 83550; 83735; 83970; 84100; 84134; 84255; 84425; 84443; 84590; 84630; 85027; 85610; 85730

== ENCOUNTER → 2022-01-08 | Outpatient (CLI) | payer BC ==
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
== END | disposition home or self-care (01) ==
LOC: RADUSWWP 08:30
PROVIDERS: ATTEND Family Medicine
DX: S19.9XXA Unspecified injury of neck, initial encounter (principal); X58.XXXA Exposure to other specified factors, initial encounter
CPT/HCPCS: 76536

== ENCOUNTER → 2022-05-07 | Outpatient (CLI) | payer OTHER ==
[2022-05-07 13:02] VITALS: BP 117/73; PULSE 65; RESP 16; TEMP 98.6; BMI 50.2
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
== END | disposition home or self-care (01) ==
LOC: BARWHC3 11:53
PROVIDERS: ATTEND Surgery Plastic and Reconstructive Surgery
DX: E66.01 Morbid (severe) obesity due to excess calories (principal)
CPT/HCPCS: 97803; 99211

== ENCOUNTER → 2022-05-12 | Outpatient (CLI) | payer OTHER ==
--- NOTE | 2022-05-12 08:22 | MM ---
Reason for Exam: Clinical finding. Last mammogram was performed 3 year(s) and 6 month(s) ago. Patient History: Menarche at age 11. First Full-Term at age 25. Postmenopausal. Cyst Aspiration on the Left side. Cyst Aspiration on the Left side. Excisional Biopsy on the Left side. Risk Values: Ketty 5 year model risk: 1.7%. NCI Lifetime model risk: 10.2%. Prior Study Comparison: 04/23/2000 Bilateral Diagnostic Mammogram, [facility]. 02/21/2004 Bilateral Screening Mammogram, [facility]. 02/28/2004 Left Special View Mammogram, [facility]. 07/08/2010 Bilateral Diagnostic Mammogram, [facility]. 06/22/2014 Bilateral Screening Mammogram, [facility]. Tissue Density: The breast tissue is heterogeneously dense. This may lower the sensitivity of mammography. Analyzed By CAD. Overall Assessment: Negative, BI-RAD 1 Management: Screening Mammogram of both breasts in 1 year. Electronically signed and approved by: Bronson Pierre DO
== END | disposition home or self-care (01) ==
LOC: RADMAMWWP 07:17
PROVIDERS: ATTEND Internal Medicine
DX: N63.10 Unspecified lump in the right breast, unspecified quadrant (principal)
CPT/HCPCS: 77062; 77066

== ENCOUNTER → 2022-11-05 | Outpatient (CLI) | payer OTHER ==
[2022-11-05 13:23] VITALS: BP 125/84; PULSE 73; TEMP 98.2; BMI 45.9
--- NOTE | 2022-11-05 14:21 | P.PN ---
Progress Note - Text Progress Note Date: 11/05/22 Patient not seen.
== END ==
LOC: BARWHC3 11:58
PROVIDERS: ATTEND Surgery Plastic and Reconstructive Surgery
DX: Z53.9 Procedure and treatment not carried out, unspecified reason (principal)
CPT/HCPCS: 97803; 99211

== ENCOUNTER → 2022-11-14 | Outpatient (CLI) | payer OTHER ==
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
== END | disposition home or self-care (01) ==
LOC: RADUSWWP 07:45
PROVIDERS: ATTEND Otolaryngology
DX: E04.2 Nontoxic multinodular goiter (principal)
CPT/HCPCS: 76536

== ENCOUNTER → 2023-08-28 | Outpatient (CLI) | payer BC ==
--- NOTE | 2023-08-28 14:46 | MM ---
Reason for Exam: Additional evaluation requested from prior study. Last mammogram was performed 1 year(s) and 4 month(s) ago. Patient History: Menarche at age 11. First Full-Term at age 25. Postmenopausal. Cyst Aspiration on the Left side. Cyst Aspiration on the Left side. Excisional Biopsy on the Left side. Risk Values: Ketty 5 year model risk: 1.8%. NCI Lifetime model risk: 10.0%. Tissue Density: The breast tissue is heterogeneously dense. This may lower the sensitivity of mammography. Findings: Analyzed By CAD. No visible mass or distortion. Benign punctate calcifications redemonstrated. Overall Assessment: Benign, BI-RAD 2 Management: Screening Mammogram of both breasts in 1 year. . Results were given to the patient verbally at the time of exam. Patient should continue monthly self-breast exams. A clinical breast exam by your physician is recommended on an annual basis. This exam should not preclude additional follow-up of suspicious palpable abnormalities. Note on Ketty scores and lifetime risk: 1. A Ketty score greater than 3% is considered moderate risk. If this is the case, consider specialist referral to assess eligibility for a risk reducing agent. 2. If overall lifetime risk for the development of breast cancer is 20% or higher, the patient may qualify for future screening with alternating mammogram and breast MRI. Electronically signed and approved by: Vicente Arndt M.D. Radiologis
== END | disposition home or self-care (01) ==
LOC: RADMAMWWP 14:19
PROVIDERS: ATTEND Internal Medicine
DX: R92.343 Mammographic extreme density, bilateral breasts (principal); Z78.0 Asymptomatic menopausal state
CPT/HCPCS: 77062; 77066

== ENCOUNTER → 2023-09-10 | Outpatient (CLI) | payer BC ==
--- NOTE | 2023-09-10 12:55 | US ---
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 1.2 X 0.5 x 1.0 cm, mid, solid or almost completely solid, heterogeneous hypoechoic TR 4 nodule, which is wider than tall, with ill-defined margins, without echogenic foci. Prior size: 1.1 x 0.5 x 0.8 cm LEFT: # of nodules measured on left: 1 1. 3.6 X 2.1 x 3.0 cm, mid, solid or almost completely solid, heterogeneous isoechoic TR 3 nodule, which is wider than tall, with smooth margins, without echogenic foci. Prior size: 3.6 x 1.9 x 2.8 cm ISTHMUS: # of nodules measured in the isthmus: 0 Vc++ Developer notes: Bilateral neck scanned, right neck lymph node seen measuring 2.0 x 0.9 x 1.0cm, le ft neck lymph node seen measuring 2.3 x 0.8 x 1.0cm. IMPRESSION: 1. A 1.2 x 1.0 cm TR4 nodule in the right lobe previously measured 1.1 x 0.8 cm. 2. A 3.6 x 3.0 cm TR3 nodule in the left lobe previously measured 3.6 x 2.8 cm. A millimeter or two o f enlargement in each nodule. 3. In addition, note a prominent lymph node on either side of the neck. These may be reactive/post in flammatory. Follow-up ultrasound in 6-8 weeks to ensure stability/resolution. 2017 ACR TI-RADS LEVEL: TR-RADS 3 - Mildly Suspicious: Follow if > 1.5 cm, FNA if > 2.5 cm 2017 ACR TI-RADS LEVEL: TR-RADS 4 - Moderately Suspicious: Follow if > 1 cm, FNA if > 1.5 cm
== END | disposition home or self-care (01) ==
LOC: RADUSWWP 06:48
PROVIDERS: ATTEND Internal Medicine
DX: E04.2 Nontoxic multinodular goiter (principal)
CPT/HCPCS: 76536

== ENCOUNTER 2024-02-22 02:31 | Emergency (ER) | payer BC ==
[2024-02-22 02:46] VITALS: TEMP 98
[2024-02-22] MEDS: SODIUM CHLORIDE 0.9% 1,000 ML IV STA (03:26)
[2024-02-22 03:29] LABS: Basophils % (A) 0 %; Eosinophils # (A) 0.9 k/uL (0-0.7); Eosinophils % (A) 20 %; HCT 35.6 % (34.0-46.0); HGB 11.5 gm/dL (11.4-16.0); Hypochromasia Moderate; Lymphocytes # (A) 0.8 k/uL (1.0-4.8); Lymphocytes % (A) 18 %; MCH 27.9 pg (25.0-35.0); MCHC 32.2 g/dL (31.0-37.0); MCV 86.8 fL (80.0-100.0); Mean Platelet Volume 9.5; Monocytes # (A) 0.3 k/uL (0-1.0); Monocytes % (A) 6 %; Neutrophils # (A) 2.6 k/uL (1.3-7.7); Neutrophils % (A) 56 %; Platelet Count 117 k/uL (150-450); RDW 13.5 % (11.5-15.5); WBC 4.7 k/uL (3.8-10.6)
[2024-02-22 03:31] LABS: Glucose,Whole Blood 102 mg/dL (70-110)
--- NOTE | 2024-02-22 03:37 | ED ---
General Adult HPI - General Chief complaint: Dizziness Stated complaint: Dizziness Time Seen by Provider: 02/22/24 03:00 Source: patient, EMS Mode of arrival: EMS - History of Present Illness Initial comments: Lachelle is a pleasant 58yo F to the emergency department today for evaluation of dizziness. Patient underwent a hysterectomy on the second of this month she was discharged same day from [facility] she states she felt like she was doing well that day but when she woke up this morning she felt like she was just coming out of anesthesia again. Patient reports she feels like the room is moving around her. It is worse with turning her head or when she sits up. Patient does get some relief when she lays flat but then she starts having cramping in her abdomen and has to move positions and the dizziness resumes. No history of vertigo in the past but she does have a history of tinnitus. - Related Data Home Medications Medication Instructions Recorded Confirmed Metoprolol Succinate (ER) [Toprol 50 mg PO DAILY 08/30/19 11/05/22 XL] amLODIPine BESYLATE [Norvasc] 5 mg PO DAILY 01/16/21 11/05/22 Cyanocobalamin (Vitamin B-12) 5,000 mcg PO DAILY 12/11/21 11/05/22 [Vitamin B12] Iron 18 mg PO HS 12/11/21 11/05/22 Acetaminophen-Codeine 300-30mg 1 tab PO Q8H PRN 01/06/22 11/05/22 [Tylenol w/codeine #3] Baclofen 10 mg PO TID 01/06/22 11/05/22 Cholecalciferol [Vitamin D3 (125 125 mcg PO DAILY 01/06/22 11/05/22 Mcg = 5000 Iu)] Elderberry Fruit and Flower [Black 1 cap PO DAILY 01/06/22 11/05/22 Elderberry 575 mg Cap] Multivitamins, Thera [Multivitamin 1 tab PO DAILY 01/06/22 11/05/22 (formulary)] Previous Rx's Medication Instructions Recorded Meclizine [Antivert] 25 mg PO TID #30 tab 02/22/24 Allergies Allergy/AdvReac Type Severity Reaction Status Date / Time amitriptyline [From Elavil] Allergy Itching Verified 02/22/24 02:46 gabapentin Allergy Unknown Verified 02/22/24 02:46 ibuprofen Allergy Rash/Hives, Verified 02/22/24 02:46 itching mustard Allergy Dyspnea Verified 02/22/24 02:46 peanut Allergy Anaphylaxis Verified 02/22/24 02:46 cat nip Allergy Dyspnea Uncoded 02/22/24 02:46 metamucil powder Allergy Dyspnea Uncoded 02/22/24 02:46 salmon Allergy Dyspnea Uncoded 02/22/24 02:46 Review of Systems ROS Statement: Those systems with pertinent positive or pertinent negative responses have been documented in the HPI. ROS Other: All systems not noted in ROS Statement are negative. Past Medical History Past Medical History: Cancer, GERD/Reflux, Hypertension, Osteoarthritis (OA) Additional Past Medical History / Comment(s): herniated disc, migraine headaches, - mass present on thyroid, History of Any Multi-Drug Resistant Organisms: None Reported Past Surgical History: Bariatric Surgery, Breast Surgery, Cholecystectomy, Tubal Ligation Additional Past Surgical History / Comment(s): 01/31/2020 - mass removed by carotid on left side of neck. 2019 - US biopsy on thyroid. Gastric sleeve 08/19/21, Hysterectomy 02/20/2024 Past Anesthesia/Blood Transfusion Reactions: No Reported Reaction Past Psychological History: No Psychological Hx Reported Smoking Status: Former smoker Past Alcohol Use History: Rare Past Drug Use History: None Reported - Past Family History Mother Family Medical History: Deep Vein Thrombosis (DVT), Osteoarthritis (OA) General Exam - General Exam Comments Initial Comments: Physical Exam GENERAL: Patient is well-developed and well-nourished. Patient is nontoxic and well-hydrated and is in no distress. HENT: Normocephalic, Atraumatic EYES: PERRL, EOMI Horizontal nystagmus when turning head PULMONARY: Unlabored respirations. CARDIOVASCULAR: RRR Warm and well perfused extremities ABDOMEN: Soft, appropriate postoperative tenderness SKIN: No rashes or bruising : Deferred NEUROLOGIC: Alert and oriented Normal speech Normal gait MUSCULOSKELETAL: Moving all extremities with no apparent injury PSYCHIATRIC: No SI/HI Course Vital Signs 02/22/24 02/22/24 02:42 05:38 Temperature 98.0 F Pulse Rate 66 59 L Respiratory 18 16 Rate Blood Pressure 137/82 117/73 O2 Sat by Pulse 97 98 Oximetry EKG Findings - EKG Comments: EKG Findings:: EKG interpreted by me, EKG obtained plan of dizziness, EKG with a rate of 71, rhythm is sinus normal axis, normal intervals KS 161 QRS 77 QTc 4 [address] there is no acute [address] elevations or depressions there is no evidence of ischemia or infarction. Medical Decision Making - Medical Decision Making Was pt. sent in by a medical professional or institution (LASHELL Gibson, IN STORE REPRESENTATIVE, urgent care, hospital, or residential...) When possible be specific @ -No Did you speak to anyone other than the patient for history (EMS, parent, family, police, friend...)? What history was obtained from this source @ -'s, family Did you review nursing and triage notes (agree or disagree)? Why? @ -I reviewed and agree with nursing and triage notes Were old charts reviewed (outside hosp., previous admission, EMS record, old EKG, old radiological studies, urgent care reports/EKG's, residential records)? Report findings @ -No old charts were reviewed Differential Diagnosis (chest pain, altered mental status, abdominal pain women, abdominal pain men, vaginal bleeding, weakness, fever, dyspnea, syncope, headache, dizziness, GI bleed, back pain, seizure, CVA, palpatations, mental health)? @ -Differential Dizziness: Benign paroxysmal positional Vertigo, Menieres disease, otitis media, acoustic neuroma, vertebrobasilar insufficiency, cerebellar stroke, encephalitis, hypovolemic, arrhythmia, coronary artery syndrome, anemia, this is not meant to be an all-inclusive list EKG interpreted by me (3pts min.). @ -As above X-rays interpreted by me (1pt min.). @ -None done CT interpreted by me (1pt min.). @ -None done U/S interpreted by me (1pt. min.). @ -None done What testing was considered but not performed or refused? (CT, X-rays, U/S, labs)? Why? @ -None What meds were considered but not given or refused? Why? @ -None Did you discuss the management of the patient with other professionals (professionals i.e. LASHELL Gibson, IN STORE REPRESENTATIVE, lab, RT, psych nurse, social media strategist, charger operator, teacher, correctional officer sergeant, showcase trimmer)? Give summary @ -No Was smoking cessation discussed for >3mins.? @ -No Was critical care preformed (if so, how long)? @ -No Were there social determinants of health that impacted care today? How? (Homelessness, low income, unemployed, alcoholism, drug addiction, transportation, low edu. Level, literacy, decrease access to med. care, intermediate, re hab)? @ -No Was there de-escalation of care discussed even if they declined (Discuss DNR or withdrawal of care, Hospice)? DNR status @ -No What co-morbidities impacted this encounter? (DM, HTN, Smoking, COPD, CAD, Cancer, CVA, ARF, Chemo, Hep., AIDS, mental health diagnosis, sleep apnea, morbid obesity)? @ -None Was patient admitted / discharged? Hospital course, mention meds given and route, prescriptions, significant lab abnormalities, going to OR and other pertinent info. @ -Discharged The patient was seen and evaluated, history is obtained from patient. Patient with what appears to be peripheral vertigo. Labs were unremarkable patient felt much better after Antivert. Upon reevaluation patient was requesting discharge home with prescription for Antivert. All questions pertaining to care were answered to the best my ability and the patient was discharged home in stable condition. Undiagnosed new problem with uncertain prognosis? @ -No Drug Therapy requiring intensive monitoring for toxicity (Heparin, Nitro, Insulin, Cardizem)? @ -No Were any procedures done? @ -No Diagnosis/symptom? @ -Vertigo Acute, or Chronic, or Acute on Chronic? @ -Acute Uncomplicated (without systemic symptoms) or Complicated (systemic symptoms)? @ -Default Side effects of treatment? @ -No Exacerbation, Progression, or Severe Exacerbation? @ -No Poses a threat to life or bodily function? How? (Chest pain, [place], [place], pneumonia, PE, COPD, DKA, ARF, appy, cholecystitis, CVA, Diverticulitis, Homicidal, Suicidal, threat to staff... and all critical care pts) @ -No - Lab Data Result diagrams: 02/22/24 03:20 02/22/24 03:20 Lab Results 02/22/24 02/22/24 02/22/24 Range/Units 03:20 03:20 03:20 WBC 4.7 (3.8-10.6) k/uL RBC 4.10 (3.80-5.40) m/uL Hgb 11.5 (11.4-16.0) gm/dL Hct 35.6 (34.0-46.0) % MCV 86.8 (80.0-100.0) fL MCH 27.9 (25.0-35.0) pg MCHC 32.2 (31.0-37.0) g/dL RDW 13.5 (11.5-15.5) % Plt Count 117 L (150-450) k/uL MPV 9.5 Neutrophils % 56 % Lymphocytes % 18 % Monocytes % 6 % Eosinophils % 20 % Basophils % 0 % Neutrophils # 2.6 (1.3-7.7) k/uL Lymphocytes # 0.8 L (1.0-4.8) k/uL Monocytes # 0.3 (0-1.0) k/uL Eosinophils # 0.9 H (0-0.7) k/uL Basophils # 0.0 (0-0.2) k/uL Hypochromasia Moderate Sodium 138 (137-145) mmol/L Potassium 4.2 (3.5-5.1) mmol/L Chloride 111 H (98-107) mmol/L Carbon Dioxide 24 (22-30) mmol/L Anion Gap 3 mmol/L BUN 17 (7-17) mg/dL Creatinine 0.70 (0.52-1.04) mg/dL Est GFR (CKD-EPI)AfAm >90 (>60 ml/min/1.73 sqM) Est GFR (CKD-EPI)NonAf >90 (>60 ml/min/1.73 sqM) Glucose 98 (74-99) mg/dL POC Glucose (mg/dL) (70-110) mg/dL POC Glu Drawing In Hand ID Plasma Lactic Acid Elia 0.7 (0.7-2.0) mmol/L Calcium 8.3 L (8.4-10.2) mg/dL Total Bilirubin 0.5 (0.2-1.3) mg/dL AST 26 (14-36) U/L ALT 26 (4-34) U/L Alkaline Phosphatase 56 (38-126) U/L Total Protein 5.8 L (6.3-8.2) g/dL Albumin 3.3 L (3.5-5.0) g/dL Urine Color Urine Appearance (Clear) Urine pH (5.0-8.0) Ur Specific [place] (1.001-1.035) Urine Protein (Negative) Urine Glucose (UA) (Negative) Urine Ketones (Negative) Urine Blood (Negative) Urine Nitrite (Negative) Urine Bilirubin (Negative) Urine Urobilinogen (<2.0) mg/dL Ur Leukocyte Esterase (Negative) Urine RBC (0-5) /hpf Urine WBC (0-5) /hpf Ur Squamous Epith Cells (0-4) /hpf Urine Bacteria (None) /hpf Urine Mucus (None) /hpf 02/22/24 02/22/24 Range/Units 03:28 05:32 WBC (3.8-10.6) k/uL RBC (3.80-5.40) m/uL Hgb (11.4-16.0) gm/dL Hct (34.0-46.0) % MCV (80.0-100.0) fL MCH (25.0-35.0) pg MCHC (31.0-37.0) g/dL RDW (11.5-15.5) % Plt Count (150-450) k/uL MPV Neutrophils % % Lymphocytes % % Monocytes % % Eosinophils % % Basophils % % Neutrophils # (1.3-7.7) k/uL Lymphocytes # (1.0-4.8) k/uL Monocytes # (0-1.0) k/uL Eosinophils # (0-0.7) k/uL Basophils # (0-0.2) k/uL Hypochromasia Sodium (137-145) mmol/L Potassium (3.5-5.1) mmol/L Chloride (98-107) mmol/L Carbon Dioxide (22-30) mmol/L Anion Gap mmol/L BUN (7-17) mg/dL Creatinine (0.52-1.04) mg/dL Est GFR (CKD-EPI)AfAm (>60 ml/min/1.73 sqM) Est GFR (CKD-EPI)NonAf (>60 ml/min/1.73 sqM) Glucose (74-99) mg/dL POC Glucose (mg/dL) 102 (70-110) mg/dL POC Glu Drawing In Hand ID Emil Zaragoza Plasma Lactic Acid Elia (0.7-2.0) mmol/L Calcium (8.4-10.2) mg/dL Total Bilirubin (0.2-1.3) mg/dL AST (14-36) U/L ALT (4-34) U/L Alkaline Phosphatase (38-126) U/L Total Protein (6.3-8.2) g/dL Albumin (3.5-5.0) g/dL Urine Color Light Yellow Urine Appearance Cloudy H (Clear) Urine pH 6.0 (5.0-8.0) Ur Specific [place] 1.022 (1.001-1.035) Urine Protein Negative (Negative) Urine Glucose (UA) Negative (Negative) Urine Ketones 1+ H (Negative) Urine Blood Moderate H (Negative) Urine Nitrite Negative (Negative) Urine Bilirubin Negative (Negative) Urine Urobilinogen <2.0 (<2.0) mg/dL Ur Leukocyte Esterase Trace H (Negative) Urine RBC 153 H (0-5) /hpf Urine WBC 1 (0-5) /hpf Ur Squamous Epith Cells 1 (0-4) /hpf Urine Bacteria Occasional H (None) /hpf Urine Mucus Occasional H (None) /hpf Disposition Clinical Impression: BPPV (benign paroxysmal positional vertigo) Disposition: HOME SELF-CARE Condition: Stable Instructions (If sedation given, give patient instructions): Dizziness (ED) Prescriptions: Meclizine [Antivert] 25 mg PO TID #30 tab Is patient prescribed a controlled substance at d/c from ED?: No Referrals: Duran Patel MD [Primary Care Provider] - 1-2 days
[2024-02-22 04:00] LABS: ALT 26 U/L (4-34); AST 26 U/L (14-36); African American GFR (CKD) >90 (>60 ml/min/1.73 sqM); Albumin 3.3 g/dL (3.5-5.0); Alkaline Phosphatase 56 U/L (38-126); Anion Gap 3 mmol/L; Blood Urea Nitrogen 17 mg/dL (7-17); Calcium 8.3 mg/dL (8.4-10.2); Carbon Dioxide 24 mmol/L (22-30); Chloride 111 mmol/L (98-107); Glucose 98 mg/dL (74-99); Non-African American GFR(CKD) >90 (>60 ml/min/1.73 sqM); Potassium 4.2 mmol/L (3.5-5.1); Sodium 138 mmol/L (137-145); Total Bilirubin 0.5 mg/dL (0.2-1.3); Total Protein 5.8 g/dL (6.3-8.2)
[2024-02-22] MEDS: MECLIZINE 12.5 MG TAB PO STA (05:29)
[2024-02-22 05:39] VITALS: BP 117/73; PULSE 59; RESP 16
[2024-02-22 05:57] LABS: Appearance,Urine Cloudy (Clear); Bacteria,Urine Occasional /hpf; Bilirubin,Urine Negative (Negative); Blood,Urine Moderate (Negative); Color,Urine Light Yellow; Glucose,Urine (UA) Negative (Negative); Ketones,Urine 1+ (Negative); Leukocyte Esterase,Urine Trace (Negative); Mucus,Urine Occasional /hpf; Nitrite,Urine Negative (Negative); Protein,Urine Negative (Negative); RBC,Urine 153 /hpf (0-5); Specific Gravity,Urine 1.022 (1.001-1.035); Squamous Epithelial Cell,Urine 1 /hpf (0-4); Urobilinogen,Urine <2.0 mg/dL (<2.0); WBC,Urine 1 /hpf (0-5)
== END 2024-02-22 09:00 | disposition home or self-care (01) ==
LOC: EC 02:31
CPT/HCPCS: 36415; 80053; 81001; 83605; 85025; 93005; 96360; 96361; 99284